=== PATIENT | male | born 1930 | race Caucasian/White ===

== ENCOUNTER 2017-11-17 18:24 | Inpatient (IN) ==
--- NOTE | 2017-11-17 18:33 | Emergency Department Note ---
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 Active/Remission status: without remission Qualified Code(s): C91.00 - Acute lymphoblastic leukemia not having achieved remission Disposition: Admitted As Inpatient Condition: Fair [facility]: [facility]Primary Care Provider[facility] - Time of Disposition: 19:30 Arrhythmia/Palpitations HPI - General Chief Complaint: UC Arrhythmia/Palpitations Stated Complaint: irregular heart beat Time Seen by Provider: 11/17/17 18:27 Source: patient, family Mode of arrival: private vehicle Limitations: no limitations Nursing Notes Reviewed: Yes Vital Signs Reviewed: Yes - History of Present Illness HPI Narrative: Patient relates he is undergoing treatment for lymphocytic leukemia. States he had a white count of 110,000 which was down to 79,000 today. He was to call in to his doctor and get his medications renewed and he had talked to them about having a elevated heart rate over the last 2-3 weeks as well as some puffiness around his ankles. He states his highest heart rate he is recorded today was 139. His oncologist told him to come to the emergency department for evaluation as this could in part be a side effect of his treatment. He denies that he has been having chest pain or shortness of breath. He states he only feels a feeling of palpitations "at times". He denies any persistent shortness of breath although reports that he sometimes has slight shortness of breath. He denies weakness, dizziness or diaphoresis but has some generalized fatigue and tiredness. He states he has attributed that to being 87 years old and his chemotherapy. He denies history of any atrial fibrillation states he has had a history of some individual irregular heartbeats in the past. He arrives with a copy of his blood work from [facility] was collected at 3: 03 PM today. This did demonstrate a white count of 79.5, hemoglobin of 10.9 and platelets of 74. He was with lymphocyte predominance of 89.8%. His chemistries were remarkable for a BUN of 28 and a creatinine of 1.7. Pt Subjective Complaint: rapid heart beat, irregular heart beat Onset (ago): week(s) Duration: intermittent Severity: mild Associated symptoms: Denies: chest pain, shortness of breath, syncope, near- syncope, nausea, vomiting, anxiety, diaphoresis, cough, paresthesias, muscle cramps - Related Data Home Medications Medication Instructions Recorded Confirmed Allopurinol [Zyloprim 100 MG] 100 mg PO 07/23/16 Aspirin [Lo-Dose Aspirin EC] 81 mg PO 07/23/16 Calcium Carbonate [Calcium] 500 mg PO 07/23/16 Losartan [Cozaar] 25 mg PO 07/23/16 amLODIPine [Norvasc] 5 mg PO 07/23/16 raNITIdine HCl [Zantac] 150 mg PO 07/23/16 Inbrurrica 420 PO 11/17/17 Previous Rx's Medication Instructions Recorded Acyclovir [Zovirax] 800 mg PO 5XD #50 tablet 07/23/16 PredniSONE [Deltasone] 20 mg PO DAILY #11 tablet 07/23/16 Allergies Allergy/AdvReac Type Severity Reaction Status Date / Time No Known Allergies Allergy Verified 07/23/16 10:48 All systems ED: reviewed and negative except as stated. Past Medical History - Past Medical History Attestation: Yes The following information was validated with the patient. Source: patient, old records reviewed, obtained from family, nursing notes reviewed Medical history: Reports: cancer (Leukemia), GERD, hypertension, other ("Leaky mitral valve") Psychiatric history: Reports: no psych history - Social History Smoking Status: Never smoker Smokeless Tobacco Status: No Alcohol use: Reports: none Drug use: Reports: none Physical Exam - General Limitations: no limitations General appearance: alert, in no apparent distress - Head Head exam: atraumatic, normocephalic, normal inspection - Eye Eye exam: Present: normal appearance, PERRL, EOMI. Absent: scleral icterus, conjunctival injection - ENT ENT exam: normal exam, normal oropharynx, mucous membranes moist - Neck Neck exam: Present: normal inspection, full ROM, trachea midline. Absent: tenderness, meningismus, lymphadenopathy - Chest Chest inspection: Present: normal inspection, symmetric chest wall rise - Respiratory Respiratory exam: Present: normal lung sounds bilaterally. Absent: respiratory distress, wheezes, prolonged expiratory phase - Cardiovascular Cardiovascular exam: Present: tachycardia, irregular rhythm. Absent: JVD - Abdominal Exam Abdominal exam: Present: soft, Non-Tender, normal bowel sounds. Absent: tenderness, distention, guarding, rebound, rigidity - Extremities Exam Extremities exam: Present: normal inspection, full ROM, normal capillary refill , pedal edema (1-2+). Absent: tenderness, calf tenderness - Expanded Lower Extremity Exam Neurovascular/Tendon exam: Present: normal capillary refill. Absent: motor deficit, sensory deficit, tendon deficit Gait: observed and normal - Back Exam Back exam: Present: normal inspection, full ROM. Absent: tenderness, CVA tenderness (R), CVA tenderness (L) - Neurological Exam Neurological exam: Present: alert, oriented X3 - Psychiatric Psychiatric exam: Present: normal affect, normal mood - Skin Skin exam: Present: warm, dry, intact, normal color. Absent: rash, diaphoresis , pallor Course Course Narrative: With return of imaging, EKG and lab work, care is discussed with the patient, family and Dr. Reyna. Dr. Reyna desired this patient continue on monitor, received a dose of Cardizem orally and be observed tonight with additional IV Cardizem available should his heart rate accelerated. Patient family are agreeable with this and verbal orders have been obtained for observation. Vital Signs Temperature 98 F 11/17/17 18:37 Pulse Rate 108 11/17/17 18:37 Respiratory Rate 18 11/17/17 18:37 Blood Pressure 161/89 11/17/17 18:37 O2 Sat by Pulse Oximetry 94 11/17/17 18:37 Temperature 98 F 11/17/17 18:37 Pulse Rate 108 11/17/17 18:37 Respiratory Rate 18 11/17/17 18:37 Blood Pressure 161/89 11/17/17 18:37 O2 Sat by Pulse Oximetry 95 11/17/17 18:45 Oxygen Delivery Oxygen Delivery Room Air Arrhythmia/Palpitations - Differential Diagnosis Differential Diagnosis: Likely: palpitations, sinus tachycardia, artial arrhythmia, metabolic/electrolyte disturbance - Lab Data Lab results reviewed: Yes I reviewed the patient's lab results. Lab Results 11/17/17 11/17/17 Range/Units 18:47 18:47 PT 12.6 H (9.4-12.1) Seconds INR 1.1 APTT 30.4 (26.0-36.0) Seconds Troponin I < 0.03 (< 0.04) ng/mL - Radiology Data Radiology results reviewed: Yes I reviewed the patient's radiology results. Single view chest x-rays performed. This demonstrates some patchy nodular alternates I suspect are secondary with his lymphoma more likely the edema. I do not see consolidative or pneumonic infiltrate. Patient does not have effusion or pneumothorax. The cardiac silhouette is mildly enlarged. This is on my interpretation. Impressions Chest X-Ray 11/17/17 18:35 IMPRESSION: Findings suggest congestive heart failure D/ / Isaías Pina MD / Isaías Pina MD Interpreting Provider: Isaías Pina MD - EKG Data EKG attestation: Yes I reviewed and interpreted this EKG. EKG results narrative: EKG demonstrates atrial fibrillation with rapid ventricular response, ventricular rate of 114, axis of 43 and a QT/QTC of 307/75. Patient is very slender and has high amplitude consistent also with some possible LVH. He has some slight ST depression in V4 and V5. This is on my interpretation. Rate: tachycardia Rhythm: A.Fib
[2017-11-17] MEDS ORDERED: *HR* Enoxaparin 80 MG/0.8 ML SYRINGE SQ STA (18:34)
[2017-11-17] MEDS ORDERED: Aspirin 325 MG TABLET PO ONE (18:34)
[2017-11-17 19:06] LABS: INR 1.1; Prothrombin Time 12.6 Seconds (9.4-12.1)
[2017-11-17 19:08] LABS: Activated Partial Thrombo Time 30.4 Seconds (26.0-36.0)
[2017-11-17 19:17] LABS: Troponin I < 0.03 ng/mL (< 0.04)
[2017-11-17] MEDS ORDERED: Diltiazem CD (24hr) 120 MG CAPSULE PO ONE ×2 (19:32→20:15)
[2017-11-17] MEDS ORDERED: Naloxone 0.4 MG/ML INJ IVP PRN (20:37)
[2017-11-17 20:55] LABS: Thyroid Stimulating Hormone < 0.010 mcIU/mL (0.340-5.600)
[2017-11-18] MEDS ORDERED: *HR* Enoxaparin 60 MG/0.6 ML SYRINGE SQ SCH (06:00)
[2017-11-18] MEDS ORDERED: *HR* Enoxaparin 80 MG/0.8 ML SYRINGE SQ SCH (06:30)
[2017-11-18] MEDS: Diltiazem CD (24hr) 120 MG CAPSULE PO SCH (07:53)
[2017-11-18 09:25] LABS: BUN/Creatinine Ratio 17 (6-26); Blood Urea Nitrogen 23 mg/dL (8-23); Carbon Dioxide 27 mEq/L (23-29); Chloride 106 mEq/L (98-107); Glucose 119 mg/dL (70-105); Osmolality,Calculated 293 (280-300); Potassium 3.8 mEq/L (3.5-5.1); Sodium 139 mEq/L (136-145); eGFR For Non-African Americans 50 (> 60)
[2017-11-18] MEDS ORDERED: Bumetanide 1 MG/4 ML VIAL IVP ONE (11:27)
--- NOTE | 2017-11-18 11:41 | Internal Med History&Physical ---
Date of Encounter: 11/18/17 Time of Encounter: 10:45 Assessment and Plan (1) Atrial fibrillation with rapid ventricular response Current visit: Yes Status: Acute Duration unknown. Rate has slowed with use of Cardizem. Continue Cardizem and add low-dose beta montrell. Start oral anticoagulation. (2) Hypertension Current visit: Yes Status: Chronic Discontinue losartan and amlodipine and start Cardizem and low-dose beta montrell. Qualifiers: Hypertension type: essential hypertension Qualified Code(s): I10 - Essential (primary) hypertension (3) Edema Current visit: Yes Status: Acute Likely due to heart failure, hyperthyroidism, and use of amlodipine. Discontinue amlodipine, give IV Bumex, and recheck labs in a.m. Qualifiers: Edema type: unspecified Qualified Code(s): R60.9 - Edema, unspecified (4) Hyperthyroidism Current visit: Yes Status: Acute Check T4 and T3 levels. Start low-dose beta montrell with Cardizem to control AF. (5) Diastolic heart failure Current visit: Yes Status: Chronic Give IV Bumex and start beta montrell. Recheck labs in a.m. Qualifiers: Heart failure chronicity: chronic Qualified Code(s): I50.32 - Chronic diastolic (congestive) heart failure (6) CLL (chronic lymphocytic leukemia) Current visit: Yes Status: Chronic Check CBC in a.m. (7) Gout Current visit: Yes Status: Chronic Check uric acid level in a.m. Qualifiers: Gout site: unspecified site Gout etiology: unspecified cause Chronicity: chronic Presence of tophus: without tophus Qualified Code(s): M1A.9XX0 - Chronic gout, unspecified, without tophus (tophi) Internal Medicine - H&P: HPI Chief complaint: AF with RVR, CHF Admitted From: Emergency Dept Plans for Post Hospital Care: Home History of present illness: Mr. Gillis is a 87 year old male who was sent from his oncologist office to emergency room after he presented with AF with RVR and evidence of heart failure. Patient reports he has had intermittent sensation of rapid heart rate for approximately 3 weeks. The episodes last only a few seconds per his report. He has had occasional dyspnea on exertion but denies chest pain. He was found to have AF with RVR in emergency room. He was given IV Cardizem and admitted to [facility] floor for ongoing care needs. Cardiovascular history is significant for hypertension but he denies [place] heart failure DVT or pulmonary embolus. He has had edema of his legs for several months. Echocardiogram 01/23/2016 showed flail posterior mitral valve leaflet with severe mitral regurgitation. There was mild tricuspid regurgitation and mild pulmonic regurgitation seen. There was pulmonary hypertension with estimated RVSP of 41 mmHg. There was reported severely dilated left atrium without measurement recorded. E/A ratio was 1.2. It was recommended he go to [facility] for mitral valve repair but he has declined. Past Med Surg Social Fam HX - Past Medical History Medical history: cancer, GERD, hypertension, other Additional medical history: LEUKEMIA. "LEALY HEART VALVE" Psychiatric history: no psych history - Past Surgical History Surgical History: cholecystectomy Additional surgical history: Surgery on left arm with hardware. - Social History Smoking Status: Never smoker Smokeless Tobacco Status: No Alcohol use: none Drug use: none - Family History Father Living Status: Age at : 81 Hx Family Cancer: Yes (Hodgkins) Internal Medicine - H&P: Meds Allopurinol [Zyloprim 100 MG] 100 mg PO DAILY 07/23/16 [History] Aspirin [Lo-Dose Aspirin EC] 81 mg PO DAILY 07/23/16 [History] Calcium Carbonate [Calcium] 500 mg PO BID 07/23/16 [History] Losartan [Cozaar] 50 mg PO BID 07/23/16 [History] amLODIPine [Norvasc] 10 mg PO HS 07/23/16 [History] Inbrurrica 420 mg PO DAILY 11/17/17 [History] Omeprazole 20 mg PO DAILY 11/18/17 [History] 3 Allergy/AdvReac Type Severity Reaction Status Date / Time No Known Allergies Allergy Verified 07/23/16 10:48 All Systems PM: A 10-system review of systems was performed and is negative for pertinent findings except as documented above in the HPI. Review of systems: Gen.: He states his weight declined 20 pounds in the past year but he has regained some weight without quantitating the amount regained. Cardiovascular: As per history of present illness Respiratory: He is a lifelong nonsmoker and has no known chronic lung disease GI: He has had cholecystectomy. He denies disorders of his liver or exocrine pancreas :. He has BPH and was told he has chronic kidney disease but does not know details. He denies other kidney bladder prostate disorders. Neurologic: He denies large distribution strokes or seizures. Endocrine: He has history of goiter with hyperthyroidism but does not know details and is not receiving treatment. He denies diabetes or hyperlipidemia Hematology/oncology: He has had anemia in the past. He was diagnosed with CLL approximately 2005 and is following with Dr. Andrews in [place]. He denies other internal malignancies. Psychiatric: He denies anxiety depression or other mental health issues [place] skeletal: He had remote left arm fracture. He has DJD and gout. He denies other bone joint or muscle disorders. - Constitutional Vitals: Temp Pulse Resp BP Pulse Ox 97.6 F 94 15 146/77 94 11/18/17 11:19 11/18/17 11:19 11/18/17 11:19 11/18/17 11:19 11/18/17 11:19 Exam: Gen.: He is a well-developed well-nourished male resting in bed who appears in no acute distress at present time HEENT: Head is atraumatic and normocephalic. Eyes: EOMI. There is no scleral icterus. Mouth: Mucosa is moist. Neck: Supple and nontender. There is no thyromegaly or adenopathy noted. Heart: Irregularly irregular with rate approximately 100/m. Lungs: No wheezes or crackles are heard. Abdomen: Soft and nontender. No masses or guarding are noted. Extremities: He has 1+ edema of the dorsum of the feet and lower legs bilaterally. Dorsalis pedis and posttibial pulses are not palpable. His feet are warm to touch. He has significant DJD changes of his hands. Neurologic: Mental status: He is talkative and a fair to good historian. Cranial nerves: Smile is symmetric. Forehead wrinkles bilaterally. Tongue protrudes midline. EOMI. Motor: There is no pronator drift. Cerebellar: Finger to nose is intact bilaterally. Skin: Warm and dry Internal Med - H&P Results - Labs CBC & Chem 7: 11/18/17 08:38 Labs: BMP 11/18/17 08:38 Sodium 139 Potassium 3.8 Chloride 106 Carbon Dioxide 27 BUN 23 Creatinine 1.35 H Glucose 119 H Calcium 9.0 Cardiac Enzymes 11/18/17 Range/Units 04:44 Troponin I < 0.03 (< 0.04) ng/mL
[2017-11-18] MEDS ORDERED: *HR* Rivaroxaban 15 MG TABLET PO SCH (17:00)
[2017-11-18 17:14] LABS: Triiodothyronine (T3) Free 2.58 pg/mL (2.50-3.90)
--- NOTE | 2017-11-18 17:28 | Electrocardiograph Report ---
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
[2017-11-19 06:32] VITALS: BP 155/85
[2017-11-19 07:02] LABS: Hematocrit 32.8 % (37.5-50.1); Hemoglobin 10.5 g/dL (12.9-16.9); Mean Corpuscular Hemoglobin 30.7 pg (28.0-33.3); Mean Corpuscular Volume 95.9 fL (83.0-100.0); Mean Platelet Volume 14.5 fL (9.4-12.4); Red Blood Count 3.42 M/mcL (4.19-5.50); Red Cell Distribution Width 14.3 % (11.5-14.5)
[2017-11-19 07:23] LABS: Albumin 3.6 g/dL (3.5-5.7); Albumin/Globulin Ratio 1.6 (1.1-2.2); Bilirubin,Total 1.1 mg/dL (0.3-1.0); Calcium 8.7 mg/dL (8.6-10.3); Globulin 2.3 g/dL (2.4-3.5); Potassium 3.6 mEq/L (3.5-5.1); Total Protein 5.9 g/dL (6.4-8.9)
[2017-11-19 07:45] LABS: Platelet Count 63 K/mcL (140-400)
[2017-11-19 08:07] LABS: Lymphocytes # 51.2 K/mcL (0.6-4.6); Monocytes # 1.1 K/mcL (0.0-1.3); Neutrophils # 2.2 K/mcL (1.6-8.9); Smudge Cells Present (Not Present)
[2017-11-19 08:08] LABS: Platelet Estimate Decreased (Normal)
[2017-11-19] MEDS: Diltiazem CD (24hr) 120 MG CAPSULE PO SCH (08:48)
--- NOTE | 2017-11-19 10:03 | Discharge Summary ---
Date of Encounter: 11/19/17 Time of Encounter: 09:50 - Discharge Diagnosis (1) Atrial fibrillation with rapid ventricular response Priority: Primary Status: Acute (2) Diastolic heart failure Priority: Secondary Status: Chronic Qualifiers: Heart failure chronicity: chronic Qualified Code(s): I50.32 - Chronic diastolic (congestive) heart failure (3) Hypertension Priority: Secondary Status: Chronic Qualifiers: Hypertension type: essential hypertension Qualified Code(s): I10 - Essential (primary) hypertension (4) Edema Priority: Secondary Status: Acute Qualifiers: Edema type: unspecified Qualified Code(s): R60.9 - Edema, unspecified (5) Hyperthyroidism Priority: Secondary Status: Acute (6) CLL (chronic lymphocytic leukemia) Priority: Secondary Status: Chronic (7) Gout Priority: Secondary Status: Chronic Qualifiers: Gout site: unspecified site Gout etiology: unspecified cause Chronicity: chronic Presence of tophus: without tophus Qualified Code(s): M1A.9XX0 - Chronic gout, unspecified, without tophus (tophi) (8) Anemia Priority: Secondary Status: Acute Qualifiers: Anemia type: unspecified type Qualified Code(s): D64.9 - Anemia, unspecified (9) Thrombocytopenia Priority: Secondary Status: Acute Hospital course: Mr. Gillis is a 87 year old male who was sent from his oncologist office to emergency room after he presented with AF with RVR and evidence of heart failure. Patient reports he has had intermittent sensation of rapid heart rate for approximately 3 weeks. The episodes last only a few seconds per his report. He has had occasional dyspnea on exertion but denies chest pain. He was found to have AF with RVR in emergency room. He was given IV Cardizem and admitted to [facility] floor for ongoing care needs. Initial orders were written by the emergency room physician. I saw him morning of November 18 and performed a history and physical. He was given a dose of IV Lasix to lessen heart failure symptoms. Metoprolol was started to control ventricular response rate. Cardizem was continued from emergency room orders. He was started on Xarelto for CVA prophylaxis. He had good clinical response with heart rate decreased to less than 100 and lessening of dyspnea. TSH was suppressed to < 0.010. Free T4 returned elevated at 2.18. Free T3 was normal at 2.58. 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 A radioactive iodine uptake nuclear medicine study can be ordered as an outpatient to further delineate the nature of the hyperthyroidism. Lab work on November 19 showed WBC 50 4.5K consistent with known CLL. Hemoglobin was 10.5 and platelet count 63,000. His PCP and/or melter supervisor oxygen furnace can monitor these. Creatinine was slightly higher at 1.49 on day of discharge with estimated GFR 45 consistent with chronic kidney disease stage III. BN peptide was elevated at 390. His PCP can monitor this. Hemoglobin was 10.5 and platelet count 63K on day of discharge. His melter supervisor oxygen furnace/oncologist can further evaluate as needed. On November 19 he felt improved and wished to be discharged home. He will follow with his PCP and/or oncologist within 1 week. His PCP can refer to cardiology as needed. - Time Spent with Patient Total time spent providing and/or coordinating discharge services: - Discharge Medications Prescriptions: Bumetanide 0.5 mg PO DAILY #30 tablet Diltiazem CD (24hr) [Cardizem CD] 120 mg PO DAILY #30 cap.er.24h Metoprolol XL (24 HR) Succ [Toprol XL] 25 mg PO DAILY #30 tab.er.24h Rivaroxaban [Xarelto] 15 mg PO 1700 #30 tablet Home Medications: Allopurinol [Zyloprim 100 MG] 100 mg PO DAILY 07/23/16 [History] Calcium Carbonate [Calcium] 500 mg PO BID 07/23/16 [History] Inbrurrica 420 mg PO DAILY 11/17/17 [History] Omeprazole 20 mg PO DAILY 11/18/17 [History] Bumetanide 0.5 mg PO DAILY #30 tablet 11/19/17 [Rx] Diltiazem CD (24hr) [Cardizem CD] 120 mg PO DAILY #30 cap.er.24h 11/19/17 [Rx] Metoprolol XL (24 HR) Succ [Toprol XL] 25 mg PO DAILY #30 tab.er.24h 11/19/17 [ Rx] Rivaroxaban [Xarelto] 15 mg PO 1700 #30 tablet 11/19/17 [Rx] Allergies/Adverse Reactions: 3 Allergy/AdvReac Type Severity Reaction Status Date / Time No Known Allergies Allergy Verified 07/23/16 10:48 Date of admission: 11/18/17 11:55 [facility] care [facility] - Constitutional Vitals: Temp Pulse Resp BP Pulse Ox 98.2 F 94 18 155/85 92 11/19/17 06:24 11/19/17 06:24 11/19/17 06:24 11/19/17 06:24 11/19/17 06:24 - Patient Status Disposition: Home, Self-Care Condition: Fair - Discharge Instructions Follow Up With: [facility] [Primary Care Provider[facility] - 1 week Forms: ED Satisfaction Letter - Diet and Activity Activity: resume usual activities as tolerated Diet: advance to your usual diet
== END 2017-11-19 10:55 | disposition home or self-care (01) | DRG 309 ==
LOC: INPPIK 18:24 → EMEROOPIK 18:24 → INPPIK 20:25
PROVIDERS: ADMIT Internal Medicine; ATTEND Internal Medicine

== ENCOUNTER 2018-01-29 12:08 | Inpatient (IN) ==
[2018-01-29] MEDS ORDERED: Furosemide 40 MG/4 ML VIAL IVP ONE (12:24)
[2018-01-29] MEDS ORDERED: Ipratropium/Albuterol Neb 3 ML IH ONE (12:24)
[2018-01-29] MEDS ORDERED: Albuterol 2.5 MG/3 ML NEBULIZER IH ONE (12:24)
[2018-01-29] MEDS ORDERED: methylPREDNISolone 125 MG/2 ML VIAL IVP ONE (12:32)
--- NOTE | 2018-01-29 12:32 | Emergency Department Note ---
Disposition Clinical Impression: Congestive heart failure Qualifiers: Heart failure type: combined systolic and diastolic Heart failure chronicity: acute Qualified Code(s): I50.41 - Acute combined systolic (congestive) and diastolic (congestive) heart failure Pneumonia Qualifiers: Pneumonia type: due to unspecified organism Laterality: bilateral Lung location: unspecified part of lung Qualified Code(s): J18.9 - Pneumonia, unspecified organism Disposition: Admitted As Inpatient Condition: Fair Time of Disposition: 14:10 (Accepted by Dr Isaac at about 14:10) SOB HPI - General Chief Complaint: ED Shortness of Breath/Dyspnea Stated Complaint: SAMANTHA Time Seen by Provider: 01/29/18 12:14 Source: patient Limitations: no limitations Nursing Notes Reviewed: Yes Vital Signs Reviewed: Yes - History of Present Illness Patient is a pleasant 87-year-old male with past medical history significant for HTN, Cardiography, A fib and GERD who does NOT take home NC who is presenting to [facility] Emergency Room with a chief complaint off SOB and hypoxia. His son brought him due to his progressive SOB when he went to the back yard and thought its due to his a fib. On admission, pt's HR in 80s no rvr and was found HYPOXIC, placed on 3 L NC to improve pulse ox to 90s. Patient denies any fever, chills or night sweats. Pt also denies any eye pain or visual disturbances. There is no sore throat, nasal drainages or facial congestion. There is no chest pain, palpitations or racing heart. There is no abdominal pain, nausea, vomiting or diarrhea. There is no urgency, frequency or dysuria. There is no muskulo-skeletal pain, arthralgia or back pain. Patient also denies any rash, edema or pruritus. There is no neurological manifestations, no headache, no vertigo or weakness. The patient also denies any anxiety, depression, hallucinations and has no homicidal or suicidal ideations. There is no polyuria, polydipsia or recent weight change. There is no easy bruising or bleeding. Review of other systems is otherwise negative except above. Pt Subjective Complaint: shortness of breath Onset (ago): Just QUILL [employer]IPPER Context: recent illness Severity: mild - Related Data Home Medications Medication Instructions Recorded Confirmed Allopurinol [Zyloprim 100 MG] 100 mg PO DAILY 07/23/16 01/29/18 Calcium Carbonate [Calcium] 500 mg PO BID 07/23/16 01/29/18 Omeprazole 20 mg PO DAILY 11/18/17 01/29/18 Furosemide [Lasix] 10 mg PO DAILY 01/29/18 01/29/18 Previous Rx's Medication Instructions Recorded Diltiazem CD (24hr) [Cardizem CD] 120 mg PO DAILY #30 cap.er.24h 11/19/17 Metoprolol XL (24 HR) Succ [Toprol 25 mg PO DAILY #30 tab.er.24h 11/19/17 XL] Allergies Allergy/AdvReac Type Severity Reaction Status Date / Time No Known Allergies Allergy Verified 01/29/18 12:09 All systems ED: reviewed and negative except as stated. Review of Systems: As Per HPI Constitutional: Reports: weakness. Denies: fever, chills, weight change Eyes: Denies: eye pain, eye discharge, vision change ENT ED: Denies: ear pain, throat pain, dental pain, hearing loss, epistaxis, congestion, dysphagia Cardiovascular: Reports: dyspnea on exertion. Denies: chest pain, palpitations, edema, syncope Respiratory: Reports: dyspnea. Denies: cough, wheezes, hemoptysis, stridor Gastrointestinal: Denies: abdominal pain, nausea, vomiting, diarrhea, constipation, hematemesis, melena, hematochezia Genitourinary: Denies: urgency, dysuria, frequency, hematuria Musculoskeletal: Denies: back pain, neck pain, arthralgia, myalgia Integumentary: Denies: rash, abrasion, lesions Neurological: Denies: headache, weakness, numbness, paresthesias, confusion, abnormal gait, vertigo Psychiatric: Denies: anxiety, depression, suicidal thoughts, homicidal thoughts, auditory hallucinations, visual hallucinations Endocrine: Denies: fatigue Hematological/Lymphatic: Denies: easy bleeding, easy bruising Allergic/Immunologic: Denies: facial swelling, urticaria Past Medical History - Past Medical History Medical history: Reports: arthritis, cardiomyopathy, GERD, hypertension, other Surgical history: Reports: cholecystectomy Psychiatric history: Reports: no psych history - Social History Smoking Status: Never smoker Smokeless Tobacco Status: No Alcohol use: Reports: none Drug use: Reports: none Physical Exam - General Limitations: no limitations General appearance: alert, in distress - Head Head exam: atraumatic, normocephalic, normal inspection - Eye Eye exam: Present: normal appearance, PERRL, EOMI - Expanded Eye Exam Pupils: Left: reactive - ENT ENT exam: normal exam, normal oropharynx, mucous membranes moist - Expanded ENT Exam External ear exam: Present: normal external inspection Mouth exam: Present: normal external inspection Teeth exam: Present: normal inspection Throat exam: Present: normal inspection - Neck Neck exam: Present: normal inspection, full ROM, trachea midline - Chest Chest inspection: Present: normal inspection, symmetric chest wall rise - Respiratory Respiratory exam: Present: normal lung sounds bilaterally - Cardiovascular Cardiovascular exam: Present: regular rate, normal rhythm, normal heart sounds, systolic murmur, diastolic murmur, +S4 - Abdominal Exam Abdominal exam: Present: soft, Non-Tender. Absent: tenderness, distention, guarding, rebound, rigidity - Extremities Exam Extremities exam: Present: normal inspection, full ROM, joint swelling. Absent: tenderness, pedal edema - Expanded Upper Extremity Exam Shoulder exam: Present: normal inspection, full ROM Arm exam: Present: normal inspection, full ROM Elbow exam: Present: normal inspection, full ROM Forearm/Wrist exam: Present: normal inspection, full ROM Hand exam: Present: normal inspection, full ROM Vascular exam: Normal: capillary refill, radial pulse - Expanded Lower Extremity Exam Hip/Pelvis exam: Present: normal inspection, full ROM Upper leg exam: Present: normal inspection, full ROM Knee exam: Present: normal inspection, full ROM Lower leg exam: Present: normal inspection, full ROM, swelling Ankle exam: Present: normal inspection, full ROM, swelling Foot/toe exam: Present: normal inspection, full ROM, swelling Neurovascular/Tendon exam: Absent: motor deficit, sensory deficit, tendon deficit - Back Exam Back exam: Present: normal inspection, full ROM. Absent: tenderness - Neurological Exam Neurological exam: Present: alert, oriented X3 - Expanded Neurological Exam Patient oriented to: Present: person, place, time Coma Scale Eye Opening: Spontaneous Coma Scale Motor Response: Obeys Commands Coma Scale Verbal Response: Oriented Coma Scale Total: 15 - Psychiatric Psychiatric exam: Present: normal affect, normal mood - Skin Skin exam: Present: warm, dry, intact, normal color Course Vital Signs Temperature 98.3 F 01/29/18 12:10 Pulse Rate 85 01/29/18 12:10 Respiratory Rate 20 01/29/18 12:10 Blood Pressure 160/102 01/29/18 12:10 O2 Sat by Pulse Oximetry 92 01/29/18 12:10 Temperature 97.5 F L 01/29/18 15:47 Pulse Rate 92 01/29/18 15:47 Respiratory Rate 23 01/29/18 15:47 Blood Pressure 148/98 01/29/18 15:47 O2 Sat by Pulse Oximetry 95 01/29/18 15:47 Oxygen Delivery Oxygen Delivery Nasal Cannula Shortness of Breath/Dyspnea - Differential Diagnosis Likely: congestive heart failure, pneumonia, asthma with exacerbation, pulmonary embolism, pneumothorax - Medical Records Medical records reviewed: Yes I reviewed the patient's medical records. - Lab Data Lab results reviewed: Yes I reviewed the patient's lab results. Result diagrams: 01/29/18 12:51 01/29/18 12:51 Lab Results 01/29/18 01/29/18 01/29/18 Range/Units 12:51 12:51 12:51 WBC 19.6 H (4.3-11.1) K/mcL RBC 3.64 L (4.19-5.50) M/mcL Hgb 10.9 L (12.9-16.9) g/dL Hct 33.3 L (37.5-50.1) % MCV 91.5 (83.0-100.0) fL MCH 29.9 (28.0-33.3) pg MCHC 32.7 (31.6-35.5) g/dL RDW 17.0 H (11.5-14.5) % Plt Count 121 L (140-400) K/mcL MPV 11.9 (9.4-12.4) fL Seg Neutrophils % 34.0 % Lymphocytes % 64.0 % Monocytes % 2.0 % Neutrophils # 6.7 (1.6-8.9) K/mcL Lymphocytes # 12.5 H (0.6-4.6) K/mcL Monocytes # 0.4 (0.0-1.3) K/mcL Smudge Cells Present A (Not Present) Platelet Estimate Decreased L (Normal) Anisocytosis 1+ A (Not Present) PT (9.4-12.1) Seconds INR APTT (26.0-36.0) Seconds D-Dimer 861 H (0-500) ng/mLFEU Sodium 135 L (136-145) mEq/L Potassium 4.3 (3.5-5.1) mEq/L Chloride 103 (98-107) mEq/L Carbon Dioxide 22 L (23-29) mEq/L BUN 54 H (8-23) mg/dL Creatinine 2.00 H (0.70-1.30) mg/dL Est GFR ( Amer) 39 L (> 60) Est GFR (Non-Af Amer) 32 L (> 60) BUN/Creatinine Ratio 27 H (6-26) Glucose 126 H (70-105) mg/dL Calculated Osmolality 296 (280-300) Calcium 9.1 (8.6-10.3) mg/dL Total Bilirubin 1.9 H (0.3-1.0) mg/dL Direct Bilirubin 0.7 H (0.0-0.2) mg/dL Indirect Bilirubin 1.2 (0.0-1.2) mg/dL AST 65 H (13-39) Units/L ALT 74 H (7-52) Units/L Alkaline Phosphatase 87 (34-104) Units/L Troponin I 0.04 H* (< 0.04) ng/mL B-Natriuretic Peptide (Less than 100) pg/mL Serum Total Protein 6.1 L (6.4-8.9) g/dL Albumin 3.8 (3.5-5.7) g/dL Globulin 2.3 L (2.4-3.5) g/dL Albumin/Globulin Ratio 1.7 (1.1-2.2) Urine Color (Yellow) Urine Clarity (Clear) Urine pH (5.0-8.0) pH Units Ur Specific Franklin (1.010-1.025) Urine Protein (Neg-Trace) mg/dL Urine Glucose (UA) (Normal) mg/dL Urine Ketones (Negative) mg/dL Urine Blood (Negative) Urine Nitrite (Negative) Urine Bilirubin (Negative) Urine Urobilinogen (Normal) mg/dL Ur Leukocyte Esterase (Negative) Ur Culture Indicated? (NO) 01/29/18 01/29/18 01/29/18 Range/Units 12:51 12:51 13:47 WBC (4.3-11.1) K/mcL RBC (4.19-5.50) M/mcL Hgb (12.9-16.9) g/dL Hct (37.5-50.1) % MCV (83.0-100.0) fL MCH (28.0-33.3) pg MCHC (31.6-35.5) g/dL RDW (11.5-14.5) % Plt Count (140-400) K/mcL MPV (9.4-12.4) fL Seg Neutrophils % % Lymphocytes % % Monocytes % % Neutrophils # (1.6-8.9) K/mcL Lymphocytes # (0.6-4.6) K/mcL Monocytes # (0.0-1.3) K/mcL Smudge Cells (Not Present) Platelet Estimate (Normal) Anisocytosis (Not Present) PT 23.5 H (9.4-12.1) Seconds INR 2.1 APTT 32.9 (26.0-36.0) Seconds D-Dimer (0-500) ng/mLFEU Sodium (136-145) mEq/L Potassium (3.5-5.1) mEq/L Chloride (98-107) mEq/L Carbon Dioxide (23-29) mEq/L BUN (8-23) mg/dL Creatinine (0.70-1.30) mg/dL Est GFR ( Amer) (> 60) Est GFR (Non-Af Amer) (> 60) BUN/Creatinine Ratio (6-26) Glucose (70-105) mg/dL Calculated Osmolality (280-300) Calcium (8.6-10.3) mg/dL Total Bilirubin (0.3-1.0) mg/dL Direct Bilirubin (0.0-0.2) mg/dL Indirect Bilirubin (0.0-1.2) mg/dL AST (13-39) Units/L ALT (7-52) Units/L Alkaline Phosphatase (34-104) Units/L Troponin I (< 0.04) ng/mL B-Natriuretic Peptide 2587 H (Less than 100) pg/mL Serum Total Protein (6.4-8.9) g/dL Albumin (3.5-5.7) g/dL Globulin (2.4-3.5) g/dL Albumin/Globulin Ratio (1.1-2.2) Urine Color Yellow (Yellow) Urine Clarity Clear (Clear) Urine pH 5.0 (5.0-8.0) pH Units Ur Specific Franklin 1.015 (1.010-1.025) Urine Protein Negative (Neg-Trace) mg/dL Urine Glucose (UA) Normal (Normal) mg/dL Urine Ketones Negative (Negative) mg/dL Urine Blood Negative (Negative) Urine Nitrite Negative (Negative) Urine Bilirubin Negative (Negative) Urine Urobilinogen Normal (Normal) mg/dL Ur Leukocyte Esterase Negative (Negative) Ur Culture Indicated? NO (NO) - Radiology Data Radiology results reviewed: Yes I reviewed the patient's radiology results. - EKG Data EKG attestation: Yes I reviewed and interpreted this EKG.
[2018-01-29 12:59] LABS: Hematocrit 33.3 % (37.5-50.1); Hemoglobin 10.9 g/dL (12.9-16.9); Mean Corpuscular HGB Conc 32.7 g/dL (31.6-35.5); Mean Corpuscular Hemoglobin 29.9 pg (28.0-33.3); Mean Corpuscular Volume 91.5 fL (83.0-100.0); Mean Platelet Volume 11.9 fL (9.4-12.4); Monocytes # 0.4 K/mcL (0.0-1.3); Platelet Count 121 K/mcL (140-400); Red Blood Count 3.64 M/mcL (4.19-5.50)
[2018-01-29 13:07] LABS: INR 2.1; Prothrombin Time 23.5 Seconds (9.4-12.1)
[2018-01-29 13:10] LABS: Activated Partial Thrombo Time 32.9 Seconds (26.0-36.0)
[2018-01-29 13:15] LABS: Albumin 3.8 g/dL (3.5-5.7); Albumin/Globulin Ratio 1.7 (1.1-2.2); Bilirubin,Direct 0.7 mg/dL (0.0-0.2); Bilirubin,Indirect 1.2 mg/dL (0.0-1.2); Bilirubin,Total 1.9 mg/dL (0.3-1.0); Calcium 9.1 mg/dL (8.6-10.3); Globulin 2.3 g/dL (2.4-3.5); Lymphocytes # 12.5 K/mcL (0.6-4.6); Neutrophils # 6.7 K/mcL (1.6-8.9); Potassium 4.3 mEq/L (3.5-5.1); Total Protein 6.1 g/dL (6.4-8.9)
[2018-01-29 13:16] LABS: Anisocytosis 1+ (Not Present); Platelet Estimate Decreased (Normal); Smudge Cells Present (Not Present)
[2018-01-29 13:47] LABS: Troponin I 0.04 ng/mL (< 0.04)
[2018-01-29] MEDS ORDERED: Isovue-370 500 ML INFUS..BTL IV ONE (13:47)
[2018-01-29] MEDS ORDERED: cefTRIAXone 2,000 MG in Water for inj. (sterile) 20 ML 20 ML IVP ONE (14:07)
[2018-01-29 14:26] LABS: Bilirubin,Urine Negative (Negative); Blood,Urine Negative (Negative); Clarity,Urine Clear (Clear); Color,Urine Yellow (Yellow); Glucose,Urine (UA) Normal (Normal); Ketones,Urine Negative (Negative); Leukocyte Esterase,Urine Negative (Negative); Nitrite,Urine Negative (Negative); Protein,Urine Negative (Neg-Trace); Specific Gravity,Urine 1.015 (1.010-1.025); Urobilinogen,Urine Normal (Normal)
[2018-01-29] MEDS ORDERED: Naloxone 0.4 MG/ML INJ IVP PRN ×3 (14:37→14:40)
[2018-01-29] MEDS: Metoprolol XL (24 HR) Succ 25 MG TAB.ER.24H PO SCH (17:26)
[2018-01-29] MEDS: Furosemide 20 MG/2 ML VIAL IVP SCH (17:26)
[2018-01-29] MEDS: Isosorbide MONOnitrate (24 HR) 30 MG TAB.ER.24H PO SCH (17:26)
--- NOTE | 2018-01-29 19:36 | Internal Med History&Physical ---
Date of Encounter: 01/29/18 Time of Encounter: 15:50 Assessment and Plan (1) Diastolic heart failure Current visit: No Status: Chronic Superimposed flail posterior mitral valve leaflet. He has previously declined referral to [facility] for repair. I spoke to him about the seriousness of the situation and his poor prognosis without surgical intervention. Continue Toprol, Cardizem, and start IV Lasix with Imdur. Qualifiers: Heart failure chronicity: chronic Qualified Code(s): I50.32 - Chronic diastolic (congestive) heart failure (2) Atrial fibrillation with rapid ventricular response Current visit: No Status: Acute Continue Eliquis, metoprolol, and Cardizem (3) CLL (chronic lymphocytic leukemia) Current visit: No Status: Chronic As per Dr. Andrews (4) Hypertension Current visit: No Status: Chronic Continue metoprolol and Cardizem. Qualifiers: Hypertension type: essential hypertension Qualified Code(s): I10 - Essential (primary) hypertension (5) Hyperthyroidism Current visit: No Status: Acute [facility]. Continue systematic treatment with Toprol. (6) Gout Current visit: No Status: Chronic Continue allopurinol Qualifiers: Gout site: unspecified site Gout etiology: unspecified cause Chronicity: chronic Presence of tophus: without tophus Qualified Code(s): M1A.9XX0 - Chronic gout, unspecified, without tophus (tophi) (7) Anemia Current visit: No Status: Acute Order anemia testing in a.m. Qualifiers: Anemia type: unspecified type Qualified Code(s): D64.9 - Anemia, unspecified Internal Medicine - H&P: HPI Chief complaint: Dyspnea Admitted From: Emergency Dept Plans for Post Hospital Care: Home History of present illness: Mr. Gillis is a 87 year old male who came to emergency room stating he had increased dyspnea over the past month with worsening the past 1-2 days. He reports a cough productive of minimal whitish sputum. He denies chest pain. He has had orthopnea. He was evaluated in emergency room and felt to have exacerbation of heart failure and possible pneumonia. He was admitted to [facility] floor for ongoing care needs. Cardiovascular history is significant for hypertension but he denies ND DVT or pulmonary embolus. He had elevated BNP peptide during his [facility] hospitalization approximately 2 months ago. He reports going to follow-up at the [place] [facility] following [facility] discharge and an echocardiogram was done. He reports he was sent from the echo lab to the [place] emergency room because of an abnormality was seen on the echo but the staff in the [place] emergency room did not know why he had been sent and no intervention was done. He states he has been referred to Dr. Vasquez De La Vega at [facility] who made no new suggestions or interventions. He has had edema of his legs for several months. Echocardiogram at [facility] 01/23/2016 showed flail posterior mitral valve leaflet with severe mitral regurgitation. There was mild tricuspid regurgitation and mild pulmonic regurgitation seen. There was pulmonary hypertension with estimated RVSP of 41 mmHg. There was reported severely dilated left atrium without measurement recorded. E/A ratio was 1.2. It was recommended he go to [facility] for mitral valve repair but he has declined. He was diagnosed with atrial fibrillation on presentation to [facility] last admission. He is now on Eliquis, metoprolol, and Cardizem. Past Med Surg Social Fam HX - Past Medical History Medical history: arthritis, cardiomyopathy, GERD, hypertension, other Additional medical history: MITRAL VALVE REGURGITATION, SYCUAN,GOUT Psychiatric history: no psych history - Past Surgical History Surgical History: cholecystectomy Additional surgical history: Surgery on left arm with hardware. - Social History Smoking Status: Never smoker Smokeless Tobacco Status: No Alcohol use: none Drug use: none - Family History Father Living Status: Hx Family Cancer: Yes (Hodgkins) Internal Medicine - H&P: Meds Allopurinol [Zyloprim 100 MG] 100 mg PO DAILY 07/23/16 [History] Calcium Carbonate [Calcium] 500 mg PO BID 07/23/16 [History] Omeprazole 20 mg PO DAILY 11/18/17 [History] Diltiazem CD (24hr) [Cardizem CD] 120 mg PO DAILY #30 cap.er.24h 11/19/17 [Rx] Metoprolol XL (24 HR) Succ [Toprol XL] 25 mg PO DAILY #30 tab.er.24h 11/19/17 [Rx] Furosemide [Lasix] 10 mg PO DAILY 01/29/18 [History] Allergy/AdvReac Type Severity Reaction Status Date / Time No Known Allergies Allergy Verified 01/29/18 12:09 All Systems PM: A 10-system review of systems was performed and is negative for pertinent findi ngs except as documented above in the HPI. Review of systems: Review of systems from his November 2017 [facility] hospitalization were reviewed and revised as below. Gen.: His weight has remained stable at approximate 63 kg since the November 2017 [facility] hospitalization. Cardiovascular: As per history of present illness Respiratory: He is a lifelong nonsmoker and has no known chronic lung disease GI: He has had cholecystectomy. He denies disorders of his liver or exocrine pancreas :. He has BPH and chronic kidney disease. He denies other kidney bladder prostate disorders. Neurologic: He denies large distribution strokes or seizures. Endocrine: He has history of goiter with hyperthyroidism but does not know details and is not receiving treatment. He denies diabetes or hyperlipidemia Hematology/oncology: He has had anemia in the past. He was diagnosed with CLL approximately 2005 and is following with Dr. Andrews in [place]. He denies other internal malignancies. Psychiatric: He denies anxiety depression or other mental health issues [place] skeletal: He had remote left arm fracture. He has DJD and gout. He denies other bone joint or muscle disorders. - Constitutional Vitals: Temp Pulse Resp BP Pulse Ox 97.5 F L 92 23 148/98 95 01/29/18 15:47 01/29/18 15:47 01/29/18 15:47 01/29/18 15:47 01/29/18 15:47 Exam: Gen.: He is a well-developed well-nourished male sitting on the side of bed who appears in no acute distress at present time HEENT: Head is atraumatic and normocephalic. Eyes: EOMI. There is no scleral icterus. Mouth: Mucosa is moist. Neck: Supple and nontender. There is no thyromegaly or adenopathy noted. Heart: Irregularly irregular with a 3/6 systolic murmur heard at the apex and radiating to the axilla. Lungs: Has diminished breath sounds diffusely and especially in the bases bilaterally. Back: Straight with flank tenderness. There is trace presacral edema. Abdomen: Soft and nontender. No masses or guarding are noted. Extremities: His feet are cool to touch. He has 1-2+ edema of the dorsum of the feet and lower legs bilaterally. Dorsalis pedis and posterior tibial pulses are not palpable. Neurologic: Mental status: He is talkative and a good historian. Cranial nerves: Smile is symmetric. Forehead wrinkles bilaterally. Tongue protrudes midline. EOMI. Motor: There is no pronator drift. Cerebellar: Finger to nose is intact bilaterally. Skin: Warm and dry Internal Med - H&P Results - Labs CBC & Chem 7: 01/29/18 12:51 01/29/18 12:51 Labs: Short CBC 01/29/18 Range/Units 12:51 WBC 19.6 H (4.3-11.1) K/mcL Hgb 10.9 L (12.9-16.9) g/dL Hct 33.3 L (37.5-50.1) % Plt Count 121 L (140-400) K/mcL Neutrophils # 6.7 (1.6-8.9) K/mcL BMP 01/29/18 12:51 Sodium 135 L Potassium 4.3 Chloride 103 Carbon Dioxide 22 L BUN 54 H Creatinine 2.00 H Glucose 126 H Calcium 9.1 Cardiac Enzymes 01/29/18 01/29/18 Range/Units 12:51 15:00 Troponin I 0.04 H* 0.05 H* (< 0.04) ng/mL Liver Function 01/29/18 Range/Units 12:51 Total Bilirubin 1.9 H (0.3-1.0) mg/dL Direct Bilirubin 0.7 H (0.0-0.2) mg/dL AST 65 H (13-39) Units/L ALT 74 H (7-52) Units/L Alkaline Phosphatase 87 (34-104) Units/L Albumin 3.8 (3.5-5.7) g/dL Urine 01/29/18 Range/Units 13:47 Urine Color Yellow (Yellow) Urine Clarity Clear (Clear) Urine pH 5.0 (5.0-8.0) pH Units Ur Specific [place] 1.015 (1.010-1.025) Urine Protein Negative (Neg-Trace) mg/dL Urine Glucose (UA) Normal (Normal) mg/dL - Impressions ITS Impressions Chest X-Ray 01/29/18 12:24 IMPRESSION: Cardiomegaly, vascular congestion, dependent pulmonary edema and small pleural effusions. D/ / Jewel Steward MD / Jewel Steward MD Interpreting Provider: Jewel Steward MD Chest CT 01/29/18 14:06 IMPRESSION: 1. Moderate to large bilateral pleural effusions with compressive atelectasis of the left lower lobe and right lower lobe. 2. Mild cardiomegaly. 3. Coronary artery disease. 4. Ascending thoracic aortic aneurysm, 4.2 cm in diameter. 5. Enlarged pulmonary artery suggestive of pulmonary hypertension. 6. Enlarged heterogeneous left lobe of the thyroid gland with coarse calcifications. Patient previously has had a thyroid scan on October 21, 2011. If further evaluation of the thyroid is desired, consider thyroid ultrasound on a nonemergent basis. D/ / 01/29/2018 14:30:10 Matthew Airta MD / [facility] Interpreting Provider: Matthew Arita MD
[2018-01-29] MEDS: Apixaban 5 MG TABLET PO SCH (20:11)
[2018-01-30 03:44] LABS: Basophils % 0.1 %; Hematocrit 30.9 % (37.5-50.1); Hemoglobin 10.1 g/dL (12.9-16.9); Immature Granulocytes % 0.2 % (0-4); Lymphocytes # 10.7 K/mcL (0.6-4.6); Lymphocytes % 65.9 %; Mean Corpuscular HGB Conc 32.7 g/dL (31.6-35.5); Mean Corpuscular Hemoglobin 29.6 pg (28.0-33.3); Mean Corpuscular Volume 90.6 fL (83.0-100.0); Mean Platelet Volume 11.6 fL (9.4-12.4); Monocytes # 0.8 K/mcL (0.0-1.3); Monocytes % 4.8 %; Neutrophils # 4.7 K/mcL (1.6-8.9); Red Blood Count 3.41 M/mcL (4.19-5.50)
[2018-01-30 03:48] LABS: Platelet Count 91 K/mcL (140-400)
[2018-01-30 04:08] LABS: Albumin 3.4 g/dL (3.5-5.7); Albumin/Globulin Ratio 1.5 (1.1-2.2); Bilirubin,Total 1.2 mg/dL (0.3-1.0); Calcium 8.9 mg/dL (8.6-10.3); Chol/HDL Ratio 5.1 (0-4.9); Globulin 2.2 g/dL (2.4-3.5); Phosphorous 3.7 mg/dL (2.7-4.5); Potassium 4.3 mEq/L (3.5-5.1); Total Protein 5.6 g/dL (6.4-8.9)
[2018-01-30 06:09] LABS: Platelet Estimate Decreased (Normal)
[2018-01-30] MEDS: Furosemide 20 MG/2 ML VIAL IVP SCH (07:54)
[2018-01-30] MEDS: Apixaban 5 MG TABLET PO SCH ×2 (07:54→20:35)
[2018-01-30] MEDS: Metoprolol XL (24 HR) Succ 25 MG TAB.ER.24H PO SCH (07:54)
[2018-01-30] MEDS: Isosorbide MONOnitrate (24 HR) 30 MG TAB.ER.24H PO SCH (07:54)
[2018-01-30 09:37] LABS: % Iron Saturation 3 % (20-55); Iron 13 mcg/dL (65-175); Transferrin 267 mg/dL (203-362)
[2018-01-30 09:55] LABS: Ferritin 107 ng/mL (20-250)
[2018-01-30 10:01] LABS: Folate 12.4 ng/mL (3.0-16.0)
[2018-01-30 10:05] LABS: Vitamin B12 > 1500 pg/mL (250-1100)
--- NOTE | 2018-01-30 15:17 | Internal Med Progress Note ---
Date of Encounter: 01/30/18 Time of Encounter: 15:05 - Assessment and plan (1) Diastolic heart failure Current Visit: No Status: Chronic Assessment and plan: January 30. He reports he did not have a discussion with his family about referral for mitral valve repair. BN peptide has improved slightly but azotemia has worsened with IV diuretics. IV Lasix will be discontinued at this time. Isosorbide and Toprol will be increased. Qualifiers: Heart failure chronicity: chronic Qualified Code(s): I50.32 - Chronic diastolic (congestive) heart failure (2) Atrial fibrillation with rapid ventricular response Current Visit: No Status: Acute Assessment and plan: January 30. Continue Eliquis and Cardizem. Increased Toprol as per above. (3) CLL (chronic lymphocytic leukemia) Current Visit: No Status: Chronic Assessment and plan: January 30. WBC stable at 16.2 K. (4) Hypertension Current Visit: No Status: Chronic Assessment and plan: January 30. Improved since admission. Continue Cardizem and increase metoprolol. Qualifiers: Hypertension type: essential hypertension Qualified Code(s): I10 - Essential (primary) hypertension (5) Hyperthyroidism Current Visit: No Status: Acute Assessment and plan: January 30. [facility] Continue symptomatic treatment with Toprol. (6) Gout Current Visit: No Status: Chronic Assessment and plan: January 30. Continue allopurinol Qualifiers: Gout site: unspecified site Gout etiology: unspecified cause Chronicity: chronic Presence of tophus: without tophus Qualified Code(s): M1A.9XX0 - Chronic gout, unspecified, without tophus (tophi) (7) Anemia Current Visit: No Status: Acute Assessment and plan: January 30. Anemia testing showed iron 13, transferrin saturation 3%, transferrin 267, ferritin 107, B12 > 1500, and folate 12.4. Start ferrous sulfate with vitamin C. Qualifiers: Anemia type: unspecified type Qualified Code(s): D64.9 - Anemia, unspecified (8) CKD (chronic kidney disease) stage 3, GFR 30-59 ml/min Current Visit: Yes Status: Acute Assessment and plan: January 30. Azotemia has worsened with IV Lasix. Discontinue this and monitor renal indices. - Subjective Interval history: January 30. He has no new complaints. - Constitutional Vitals: Temp Pulse Resp BP Pulse Ox 98.8 F 88 16 123/65 92 01/30/18 11:23 01/30/18 11:23 01/30/18 11:23 01/30/18 11:23 01/30/18 11:23 Exam: He is sitting on the side of bed and appears in no acute distress. His affect is bright and cheerful. I reviewed his medications and lab results. Internal Medicine: Result - Labs CBC & Chem 7: 01/30/18 03:29 01/30/18 03:29 Labs: Short CBC 01/30/18 Range/Units 03:29 WBC 16.2 H (4.3-11.1) K/mcL Hgb 10.1 L (12.9-16.9) g/dL Hct 30.9 L (37.5-50.1) % Plt Count 91 L (140-400) K/mcL Neutrophils # 4.7 (1.6-8.9) K/mcL BMP 01/30/18 03:29 Sodium 136 Potassium 4.3 Chloride 101 Carbon Dioxide 24 BUN 59 H Creatinine 2.24 H Glucose 135 H Calcium 8.9 Cardiac Enzymes 01/29/18 01/29/18 01/30/18 Range/Units 15:00 20:43 03:29 Troponin I 0.05 H* 0.05 H* 0.05 H* (< 0.04) ng/mL Liver Function 01/30/18 Range/Units 03:29 Total Bilirubin 1.2 H (0.3-1.0) mg/dL AST 59 H (13-39) Units/L ALT 70 H (7-52) Units/L Alkaline Phosphatase 77 (34-104) Units/L Albumin 3.4 L (3.5-5.7) g/dL - ABG Interpretation ABG results: PT/INR, D-dimer PT 23.5 Seconds (9.4-12.1) H 01/29/18 12:51 D-Dimer 861 ng/mLFEU (0-500) H 01/29/18 12:51 - Impressions Impressions Chest CT 01/29/18 14:06 IMPRESSION: 1. Moderate to large bilateral pleural effusions with compressive atelectasis of the left lower lobe and right lower lobe. 2. Mild cardiomegaly. 3. Coronary artery disease. 4. Ascending thoracic aortic aneurysm, 4.2 cm in diameter. 5. Enlarged pulmonary artery suggestive of pulmonary hypertension. 6. Enlarged heterogeneous left lobe of the thyroid gland with coarse calcifications. Patient previously has had a thyroid scan on October 21, 2011. If further evaluation of the thyroid is desired, consider thyroid ultrasound on a nonemergent basis. D/ / 01/29/2018 14:30:10 Matthew Arita MD / [facility] Interpreting Provider: Matthew Arita MD Consult Discharge Plan - Plan [facility]errals: [facility] [Primary Care Provider] -
[2018-01-31 04:16] LABS: Hematocrit 33.3 % (37.5-50.1); Hemoglobin 10.8 g/dL (12.9-16.9); Mean Corpuscular HGB Conc 32.4 g/dL (31.6-35.5); Mean Corpuscular Hemoglobin 29.4 pg (28.0-33.3); Mean Corpuscular Volume 90.7 fL (83.0-100.0); Mean Platelet Volume 12.5 fL (9.4-12.4); Platelet Count 114 K/mcL (140-400); Red Blood Count 3.67 M/mcL (4.19-5.50); Red Cell Distribution Width 17.1 % (11.5-14.5)
[2018-01-31 04:35] LABS: Potassium 4.6 mEq/L (3.5-5.1)
[2018-01-31 04:51] LABS: Anisocytosis 1+ (Not Present); Lymphocytes # 19.7 K/mcL (0.6-4.6); Monocytes # 1.1 K/mcL (0.0-1.3); Neutrophils # 7.3 K/mcL (1.6-8.9); Poikilocytosis 1+ (Not Present)
[2018-01-31 04:52] LABS: Platelet Estimate Slight Decrease (Normal); Toxic Granulation Present (Not Present)
[2018-01-31 04:53] LABS: Smudge Cells Present (Not Present); Toxic Vacuolation Present (Not Present)
[2018-01-31] MEDS: Ascorbic Acid 500 MG TABLET PO SCH (05:27)
[2018-01-31] MEDS: Metoprolol XL (24 HR) Succ 25 MG TAB.ER.24H PO SCH (07:51)
[2018-01-31] MEDS: Isosorbide MONOnitrate (24 HR) 30 MG TAB.ER.24H PO SCH (07:52)
[2018-01-31] MEDS: Apixaban 5 MG TABLET PO SCH ×2 (07:52→20:08)
--- NOTE | 2018-01-31 12:26 | Internal Med Progress Note ---
Date of Encounter: 01/31/18 Time of Encounter: 12:15 - Assessment and plan (1) Diastolic heart failure Current Visit: No Status: Chronic Assessment and plan: January 30. He reports he did not have a discussion with his family about referral for mitral valve repair. BN peptide has improved slightly but azotemia has worsened with IV diuretics. IV Lasix will be discontinued at this time. Isosorbide and Toprol will be increased. January 31. BN peptide improved to 1981. Continue present regimen. Qualifiers: Heart failure chronicity: chronic Qualified Code(s): I50.32 - Chronic diastolic (congestive) heart failure (2) Atrial fibrillation with rapid ventricular response Current Visit: No Status: Acute Assessment and plan: January 30. Continue Eliquis and Cardizem. Increased Toprol as per above. January 31. Continue Eliquis, Cardizem, and higher dose Toprol (3) CLL (chronic lymphocytic leukemia) Current Visit: No Status: Chronic Assessment and plan: January 30. WBC stable at 16.2 K. (4) Hypertension Current Visit: No Status: Chronic Assessment and plan: January 30. Improved since admission. Continue Cardizem and increase metoprolol. Qualifiers: Hypertension type: essential hypertension Qualified Code(s): I10 - Essential (primary) hypertension (5) Hyperthyroidism Current Visit: No Status: Acute Assessment and plan: January 30. [facility] Continue symptomatic treatment with Toprol. (6) Gout Current Visit: No Status: Chronic Assessment and plan: January 30. Continue allopurinol Qualifiers: Gout site: unspecified site Gout etiology: unspecified cause Chronicity: chronic Presence of tophus: without tophus Qualified Code(s): M1A.9XX0 - Chronic gout, unspecified, without tophus (tophi) (7) Anemia Current Visit: No Status: Acute Assessment and plan: January 30. Anemia testing showed iron 13, transferrin saturation 3%, transferrin 267, ferritin 107, B12 > 1500, and folate 12.4. Start ferrous sulfate with vitamin C. Qualifiers: Anemia type: unspecified type Qualified Code(s): D64.9 - Anemia, unspecified (8) CKD (chronic kidney disease) stage 3, GFR 30-59 ml/min Current Visit: Yes Status: Acute Assessment and plan: January 30. Azotemia has worsened with IV Lasix. Discontinue this and monitor renal indices. January 31. Creatinine has risen further to 2.61. Continue to monitor. Remain off diuretics. - Subjective Interval history: January 30. He has no new complaints. January 31. He reports feeling more dyspneic stay but has no other new complaints. - Constitutional Vitals: Temp Pulse Resp BP Pulse Ox 96.7 F L 93 16 154/81 90 01/31/18 07:14 01/31/18 07:14 01/31/18 07:14 01/31/18 07:14 01/31/18 07:14 Exam: He is sitting in a chair at bedside resting comfortably and appears in no acute distress. His affect is bright and cheerful. I reviewed his medications. I discussed pertinent lab results with him. Internal Medicine: Result - Labs CBC & Chem 7: 01/31/18 04:00 01/31/18 04:00 Labs: Short CBC 01/31/18 Range/Units 04:00 WBC 28.1 H D (4.3-11.1) K/mcL Hgb 10.8 L (12.9-16.9) g/dL Hct 33.3 L (37.5-50.1) % Plt Count 114 L (140-400) K/mcL Neutrophils # 7.3 (1.6-8.9) K/mcL BMP 01/31/18 04:00 Sodium 136 Potassium 4.6 Chloride 101 Carbon Dioxide 24 BUN 81 H Creatinine 2.61 H Glucose 107 H Calcium 9.0 - ABG Interpretation ABG results: PT/INR, D-dimer PT 23.5 Seconds (9.4-12.1) H 01/29/18 12:51 D-Dimer 861 ng/mLFEU (0-500) H 01/29/18 12:51 Consult Discharge Plan - Plan [facility]errals: [facility] [Primary Care Provider] -
[2018-01-31] MEDS: Magic Mouthwash 10 ML UD Cup PO SCH ×2 (14:59→16:54)
[2018-01-31] MEDS ORDERED: Sennosides/Docusate Sodium TABLET PO PRN (16:49)
[2018-02-01] MEDS: Ascorbic Acid 500 MG TABLET PO SCH (06:14)
[2018-02-01] MEDS: Isosorbide MONOnitrate (24 HR) 30 MG TAB.ER.24H PO SCH (07:53)
[2018-02-01] MEDS: Metoprolol XL (24 HR) Succ 25 MG TAB.ER.24H PO SCH (07:53)
[2018-02-01] MEDS: Apixaban 5 MG TABLET PO SCH ×2 (07:53→20:00)
[2018-02-01] MEDS: Magic Mouthwash 10 ML UD Cup PO SCH ×3 (07:53→16:53)
[2018-02-01 13:18] LABS: Calcium 8.9 mg/dL (8.6-10.3); Potassium 4.6 mEq/L (3.5-5.1)
--- NOTE | 2018-02-01 18:38 | Internal Med Progress Note ---
Date of Encounter: 02/01/18 Time of Encounter: 18:30 - Assessment and plan (1) Diastolic heart failure Current Visit: No Status: Chronic Assessment and plan: January 30. He reports he did not have a discussion with his family about referral for mitral valve repair. BN peptide has improved slightly but azotemia has worsened with IV diuretics. IV Lasix will be discontinued at this time. Isosorbide and Toprol will be increased. January 31. BN peptide improved to 1981. Continue present regimen. February 01. BN peptide has increased significantly to 3171. I told him he should have a discussion with family members and decide if he is willing to pursue aggressive intervention such as valve replacement or transition to hospice. Order echocardiogram to further evaluate. Qualifiers: Heart failure chronicity: chronic Qualified Code(s): I50.32 - Chronic diastolic (congestive) heart failure (2) Atrial fibrillation with rapid ventricular response Current Visit: No Status: Acute Assessment and plan: January 30. Continue Eliquis and Cardizem. Increased Toprol as per above. January 31. Continue Eliquis, Cardizem, and higher dose Toprol (3) CLL (chronic lymphocytic leukemia) Current Visit: No Status: Chronic Assessment and plan: January 30. WBC stable at 16.2 K. (4) Hypertension Current Visit: No Status: Chronic Assessment and plan: January 30. Improved since admission. Continue Cardizem and increase metoprolol. Qualifiers: Hypertension type: essential hypertension Qualified Code(s): I10 - Essential (primary) hypertension (5) Hyperthyroidism Current Visit: No Status: Acute Assessment and plan: January 30. [facility] Continue symptomatic treatment with Toprol. (6) Gout Current Visit: No Status: Chronic Assessment and plan: January 30. Continue allopurinol Qualifiers: Gout site: unspecified site Gout etiology: unspecified cause Chronicity: chronic Presence of tophus: without tophus Qualified Code(s): M1A.9XX0 - Chronic gout, unspecified, without tophus (tophi) (7) Anemia Current Visit: No Status: Acute Assessment and plan: January 30. Anemia testing showed iron 13, transferrin saturation 3%, transferrin 267, ferritin 107, B12 > 1500, and folate 12.4. Start ferrous sulfate with vitamin C. Qualifiers: Anemia type: unspecified type Qualified Code(s): D64.9 - Anemia, unspecified (8) CKD (chronic kidney disease) stage 3, GFR 30-59 ml/min Current Visit: Yes Status: Acute Assessment and plan: January 30. Azotemia has worsened with IV Lasix. Discontinue this and monitor renal indices. January 31. Creatinine has risen further to 2.61. Continue to monitor. Remain off diuretics. February 01. Creatinine has improved to 2.36. Continue to monitor. - Subjective Interval history: January 30. He has no new complaints. January 31. He reports feeling more dyspneic stay but has no other new complaints. February 01. He has no new complaints. He is still dyspneic. - Constitutional Vitals: Temp Pulse Resp BP Pulse Ox 98 F 94 18 131/85 94 02/01/18 07:26 02/01/18 07:26 02/01/18 07:26 02/01/18 07:26 02/01/18 07:26 Exam: He is sitting in a chair at bedside. He is slightly dyspneic while talking. His affect is cheerful. I reviewed his medications and lab results. Internal Medicine: Result - Labs CBC & Chem 7: 01/31/18 04:00 02/01/18 12:55 Labs: BMP 02/01/18 12:55 Sodium 135 L Potassium 4.6 Chloride 101 Carbon Dioxide 21 L BUN 81 H Creatinine 2.36 H Glucose 146 H Calcium 8.9 - ABG Interpretation ABG results: PT/INR, D-dimer PT 23.5 Seconds (9.4-12.1) H 01/29/18 12:51 D-Dimer 861 ng/mLFEU (0-500) H 01/29/18 12:51 Consult Discharge Plan - Plan [facility]errals: [facility] [Primary Care Provider] -
[2018-02-02] MEDS: Ascorbic Acid 500 MG TABLET PO SCH (06:28)
[2018-02-02 06:39] VITALS: BP 108/78
[2018-02-02] MEDS: Isosorbide MONOnitrate (24 HR) 30 MG TAB.ER.24H PO SCH (08:25)
[2018-02-02] MEDS: Magic Mouthwash 10 ML UD Cup PO SCH ×3 (08:25→17:36)
[2018-02-02] MEDS: Apixaban 5 MG TABLET PO SCH (08:26)
[2018-02-02] MEDS: Metoprolol XL (24 HR) Succ 25 MG TAB.ER.24H PO SCH (08:26)
--- NOTE | 2018-02-02 12:19 | Discharge Summary ---
Orders not resulted at time of discharge: Pending orders 01/29/18 14:31 Culture,Blood [BC] Stat Date of Encounter: 02/02/18 Time of Encounter: 11:30 - Discharge Diagnosis (1) Mitral chordae rupture Priority: Primary Status: Acute (2) Diastolic heart failure Priority: Secondary Status: Chronic Qualifiers: Heart failure chronicity: chronic Qualified Code(s): I50.32 - Chronic diastolic (congestive) heart failure (3) Atrial fibrillation with rapid ventricular response Priority: Secondary Status: Acute (4) CLL (chronic lymphocytic leukemia) Priority: Secondary Status: Chronic (5) Hypertension Priority: Secondary Status: Chronic Qualifiers: Hypertension type: essential hypertension Qualified Code(s): I10 - Essential (primary) hypertension (6) Hyperthyroidism Priority: Secondary Status: Acute (7) Gout Priority: Secondary Status: Chronic Qualifiers: Gout site: unspecified site Gout etiology: unspecified cause Chronicity: chronic Presence of tophus: without tophus Qualified Code(s): M1A.9XX0 - Chronic gout, unspecified, without tophus (tophi) (8) Anemia Priority: Secondary Status: Acute Qualifiers: Anemia type: unspecified type Qualified Code(s): D64.9 - Anemia, unspecified (9) CKD (chronic kidney disease) stage 3, GFR 30-59 ml/min Priority: Secondary Status: Acute Hospital course: Mr. Gillis is a 87 year old male who came to emergency room stating he had increased dyspnea over the past month with worsening the past 1-2 days. He reports a cough productive of minimal whitish sputum. He denies chest pain. He has had orthopnea. He was evaluated in emergency room and felt to have exacerbation of heart failure and possible pneumonia. He was admitted to [facility] floor for ongoing care needs. Initial orders were written by the emergency room physician. I saw him on January 29 and performed a history and physical. He was treated medically with Toprol, Cardizem, Lasix, and Imdur. Lasix was discontinued the following day when creatinine jenaro. He remained symptomatic and BN peptide jenaro to 3171 on February 01. I had a narciso discussion with the patient and family February 01 and told him he should either be referred for aggressive intervention/mitral valve repair or consider transitioning to hospice. After discussion with family he chose to be referred and contact was made with [facility]. He was accepted in transfer the afternoon of February 02. An echocardiogram was done the morning of February 02 with report pending at time of discharge. Atrial fibrillation rate remained controlled on metoprolol and Cardizem. Eliquis was continued for CVA prophylaxis. The WBC remained elevated but stable from CLL. He declined workup at [facility] a few weeks ago for hyperthyroidism. Toprol was used to control ventricular response rate. Endocrinology can hopefully evaluate during his stay at [facility]. Anemia testing showed iron 13, transferrin saturation 3%, transferrin 267, ferritin 107, B12> 1500, and folate 12.4. He was started on ferrous sulfate with vitamin C. Creatinine jenaro from 2.00 on admission to 2.61 on January 31 but had improved to 2.36 by the following day. This can be monitored at [facility]. - Time Spent with Patient Total time spent providing and/or coordinating discharge services: - Discharge Medications Home Medications: Allopurinol [Zyloprim 100 MG] 100 mg PO DAILY 07/23/16 [History] Calcium Carbonate [Calcium] 500 mg PO BID 07/23/16 [History] Omeprazole 20 mg PO DAILY 11/18/17 [History] Diltiazem CD (24hr) [Cardizem CD] 120 mg PO DAILY #30 cap.er.24h 11/19/17 [Rx] Metoprolol XL (24 HR) Succ [Toprol XL] 25 mg PO DAILY #30 tab.er.24h 11/19/17 [R x] Furosemide [Lasix] 10 mg PO DAILY 01/29/18 [History] Allergies/Adverse Reactions: Allergy/AdvReac Type Severity Reaction Status Date / Time No Known Allergies Allergy Verified 01/29/18 12:09 Date of admission: 01/30/18 15:24 Primary care physician: PCP ID Consults: 01/30/18 15:25 Consult to Occupational Therapy [CONS] Routine Comment: Evaluate, develop and implement POC Reason for Consult: Weakness Does patient have active BEDREST order?: No Is patient medically & hemodynamically stable?: Yes Patient assessed for mobility or mobilized this visit?: Yes Consult to Physical Therapy [CONS] Routine Comment: Evaluate, develop and implement POC Reason for Consult: Weakness Does patient have active BEDREST order?: No Is patient medically & hemodynamically stable?: Yes Patient assessed for mobility or mobilized this visit?: Yes - Constitutional Vitals: Temp Pulse Resp BP Pulse Ox 98 F 76 17 108/78 97 02/02/18 06:38 02/02/18 06:38 02/02/18 06:38 02/02/18 06:38 02/02/18 06:38 - Patient Status Disposition: Transfer Other Condition: Fair - Discharge Instructions
--- NOTE | 2018-02-02 14:09 | Electrocardiograph Report ---
[address] [address] Test Date: 2018-01-29 Pat Name: Chris Gillis Department: [id number] Room: [facility] Gender: M Stand Grinder: [id number] : [id number] Requested By: Marleen Guerra Order Number: [id number] Reading MD: David Gonzales Measurements Intervals [place] Rate: 83 P: RI: 0 QRS: 41 QRSD: 98 T: 48 QT: 372 QTc: 412 Interpretive Statements ATRIAL FIBRILLATION LOW QRS VOLTAGE IN EXTREMITY LEADS ABNORMAL RHYTHM ECG Electronically Signed On 02-02-2018 14:08:28 EDT by David Gonzales
== END 2018-02-02 18:39 | disposition other institution (70) | DRG 306 ==
LOC: INPPIK 12:08 → EMEROOPIK 12:08 → INPPIK 15:14
PROVIDERS: ADMIT Internal Medicine; ATTEND Internal Medicine

== ENCOUNTER 2018-02-15 14:07 | Inpatient (IN) ==
[2018-02-15] MEDS: Bumetanide 1 MG TABLET PO SCH (20:19)
[2018-02-15] MEDS: Apixaban 5 MG TABLET PO SCH (20:19)
[2018-02-16] MEDS: Metoprolol XL (24 HR) Succ 25 MG TAB.ER.24H PO SCH (09:45)
[2018-02-16] MEDS: Ascorbic Acid 500 MG TABLET PO SCH (09:45)
[2018-02-16] MEDS: Isosorbide MONOnitrate (24 HR) 60 MG TAB.ER.24H PO SCH (09:45)
[2018-02-16] MEDS: Apixaban 5 MG TABLET PO SCH ×2 (09:45→21:33)
[2018-02-16] MEDS: Diltiazem CD (24hr) 120 MG CAPSULE PO SCH (09:54)
--- NOTE | 2018-02-16 14:50 | Internal Med History&Physical ---
Date of Encounter: 02/16/18 Time of Encounter: 14:30 Assessment and Plan (1) Mitral chordae rupture Current visit: No Status: Acute Anticipated mitral clip surgery in approximately 2 weeks. (2) Atrial fibrillation with rapid ventricular response Current visit: No Status: Acute Continue Toprol, Cardizem, and Eliquis. (3) CLL (chronic lymphocytic leukemia) Current visit: No Status: Chronic As per oncologist (4) Edema Current visit: No Status: Acute Continue Bumex 0.5 mg every other day. Qualifiers: Edema type: unspecified Qualified Code(s): R60.9 - Edema, unspecified (5) Hyperthyroidism Current visit: No Status: Acute Continue metoprolol for rate control. (6) Diastolic heart failure Current visit: No Status: Chronic Continue metoprolol, Imdur, and Bumex Qualifiers: Heart failure chronicity: chronic Qualified Code(s): I50.32 - Chronic diastolic (congestive) heart failure (7) Anemia Current visit: No Status: Acute Anemia testing 01/30/2018 showed iron 13, transferrin saturation 3%, transferrin 267, ferritin 107, B12 > 1500, and folate 12.4. Continue ferrous sulfate with ascorbic acid. Qualifiers: Anemia type: unspecified type Qualified Code(s): D64.9 - Anemia, unspecified (8) Thrombocytopenia Current visit: No Status: Chronic Monitor platelet count. (9) CKD (chronic kidney disease) stage 3, GFR 30-59 ml/min Current visit: No Status: Acute Monitor renal indices. Internal Medicine - H&P: HPI Chief complaint: Dyspnea Admitted From: Hospital to Hospital Transfer Plans for Post Hospital Care: Home History of present illness: Mr. Gillis is a 87 year old male who was admitted to [facility] swing bed following February 02-February 15 hospitalization at [place]. He had been transferred from [facility] to [place] for intervention for flail posterior mitral valve leaflet with heart failure and dyspnea. Echocardiogram 02/02/2018 showed LVEF 60%, indeterminate diastolic function, atrial fibrillation, biatrial enlargement, posterior mitral valve leaflet prolapse, mild aortic regurgitation, moderate tricuspid regurgitation, moderate pulmonic regurgitation, and severe pulmonary hypertension with estimated RVSP of 85 mmHg. 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 He reports transesophageal echocardiogram and LHC were done during his [place] stay. No written reports are available but the patient reports no intervention was recommended after heart cath findings. He will return to [place] in a few days for a mitral clip procedure. Cardiovascular history is significant otherwise for hypertension but no known NE DVT or pulmonary embolus. Past Med Surg Social Fam HX - Past Medical History Medical history: arthritis, cardiomyopathy, GERD, hypertension, other Additional medical history: MITRAL VALVE REGURGITATION, [place],GOUT Psychiatric history: no psych history - Past Surgical History Surgical History: cholecystectomy Additional surgical history: Surgery on left arm with hardware. - Social History Smoking Status: Never smoker Smokeless Tobacco Status: No Alcohol use: none Drug use: none - Family History Father Living Status: Hx Family Cancer: Yes (Hodgkins) Internal Medicine - H&P: Meds Allopurinol [Zyloprim 100 MG] 100 mg PO DAILY 07/23/16 [History] Calcium Carbonate [Calcium] 500 mg PO BID 07/23/16 [History] Diltiazem CD (24hr) [Cardizem CD] 120 mg PO DAILY #30 cap.er.24h 11/19/17 [Rx] Metoprolol XL (24 HR) Succ [Toprol XL] 25 mg PO DAILY #30 tab.er.24h 11/19/17 [Rx] Apixaban [Eliquis] 2.5 mg PO BID 02/15/18 [History] Ascorbic Acid [Vitamin C] 250 mg PO DAILY 02/15/18 [History] Bumetanide [Bumex] 0.5 mg PO Q48H 02/15/18 [History] Ferrous Sulfate [Iron] 325 mg PO DAILY 02/15/18 [History] Isosorbide MONOnitrate (24 HR) [Imdur] 60 mg PO DAILY 02/15/18 [History] Pantoprazole Sodium [Protonix] 40 mg PO DAILY 02/15/18 [History] Allergy/AdvReac Type Severity Reaction Status Date / Time No Known Allergies Allergy Verified 01/29/18 12:09 All Systems PM: A 10-system review of systems was performed and is negative for pertinent findings except as documented above in the HPI. Review of systems: Review of systems from his January 2018 [facility] hospitalization were reviewed and revised as below. Gen.: His weight has remained stable at approximate 63 kg since the November 2017 [facility] hospitalization. Cardiovascular: As per history of present illness Respiratory: He is a lifelong nonsmoker and has no known chronic lung disease GI: He has had cholecystectomy. He denies disorders of his liver or exocrine pancreas :. He has BPH and chronic kidney disease. He denies other kidney bladder prostate disorders. Neurologic: He denies large distribution strokes or seizures. Endocrine: He has history of goiter with hyperthyroidism but does not know details and is not receiving treatment. He denies diabetes or hyperlipidemia. He does not recall being seen by an diesel retrofit installer during his recent [place] hospitalization. Hematology/oncology: He has had anemia in the past. He was diagnosed with CLL approximately 2005 and is following with Dr. Andrews in [place]. He denies other internal malignancies. Psychiatric: He denies anxiety depression or other mental health issues [place] skeletal: He had remote left arm fracture. He has DJD and gout. He denies other bone joint or muscle disorders. - Constitutional Vitals: Temp Pulse Resp BP Pulse Ox 98.0 F 92 17 103/66 96 02/16/18 11:56 02/16/18 11:56 02/16/18 11:56 02/16/18 11:56 02/16/18 11:56 Exam: Gen.: He is a well-developed well-nourished male who appears in no acute distress at present time HEENT: Head is atraumatic and normocephalic. Eyes: EOMI. There is no scleral icterus. Mouth: Mucosa is moist. Neck: Supple and nontender. There is no thyromegaly or adenopathy noted. Heart: Irregularly irregular with a 2-3/6 systolic murmur at the apex radiating to the axilla. Abdomen: Soft and nontender. No masses or guarding are noted. Extremities: He has 1-2+ edema of the dorsum of the feet and lower anterior shins bilaterally. Dorsalis pedis and posttibial pulses are not palpable. He has significant DJD changes of his hands. Neurologic: Mental status: He is talkative and a good historian. Cranial nerves: Smile is symmetric. Forehead wrinkles bilaterally. Tongue protrudes midline. EOMI. Motor: There is no pronator drift. Cerebellar: Finger to nose is intact bilaterally. Skin: Warm and dry
[2018-02-17] MEDS: Ascorbic Acid 500 MG TABLET PO SCH (10:25)
[2018-02-17] MEDS: Metoprolol XL (24 HR) Succ 25 MG TAB.ER.24H PO SCH (10:25)
[2018-02-17] MEDS: Diltiazem CD (24hr) 120 MG CAPSULE PO SCH (10:25)
[2018-02-17] MEDS: Isosorbide MONOnitrate (24 HR) 60 MG TAB.ER.24H PO SCH (10:25)
[2018-02-17] MEDS: Apixaban 5 MG TABLET PO SCH ×2 (10:25→22:10)
[2018-02-17] MEDS: Bumetanide 1 MG TABLET PO SCH (16:22)
--- NOTE | 2018-02-17 17:25 | Internal Med Progress Note ---
Date of Encounter: 02/17/18 Time of Encounter: 17:15 - Assessment and plan (1) Mitral chordae rupture Current Visit: No Status: Acute Assessment and plan: February 17. Anticipate mitral clip surgery March 05. (2) Atrial fibrillation with rapid ventricular response Current Visit: No Status: Acute Assessment and plan: February 17. 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 As per oncologist (4) Edema Current Visit: No Status: Acute Assessment and plan: February 17. Continue Bumex. Check labs in a.m. Qualifiers: Edema type: unspecified Qualified Code(s): R60.9 - Edema, unspecified (5) Hyperthyroidism Current Visit: No Status: Acute Assessment and plan: February 17. Continue metoprolol for rate control (6) Diastolic heart failure Current Visit: No Status: Chronic Assessment and plan: February 17. Continue metoprolol, Imdur, and Bumex. Check labs in a.m. Qualifiers: Heart failure chronicity: chronic Qualified Code(s): I50.32 - Chronic diastolic (congestive) heart failure (7) Anemia Current Visit: No Status: Acute Assessment and plan: February 17. Anemia testing 01/30/2018 showed iron 13, transferrin saturation 3%, transferrin 267, ferritin 107, B12 > 1500, and folate 12.4. Continue ferrous sulfate with ascorbic acid. Qualifiers: Anemia type: unspecified type Qualified Code(s): D64.9 - Anemia, unspecified (8) Thrombocytopenia Current Visit: No Status: Chronic Assessment and plan: February 17. Monitor platelet count (9) CKD (chronic kidney disease) stage 3, GFR 30-59 ml/min Current Visit: No Status: Acute Assessment and plan: February 17. Monitor renal indices. - Subjective Interval history: February 17. He has no new complaints and feels well. - Constitutional Vitals: Temp Pulse Resp BP Pulse Ox 97.7 F 90 18 114/71 94 02/17/18 06:41 02/17/18 06:41 02/17/18 06:41 02/17/18 06:41 02/17/18 06:41 Exam: He is resting comfortably in a chair and appears in no acute distress. His affect is bright and cheerful. I reviewed his medications and past lab results. Consult Discharge Plan - Plan [facility] Provider[facility] - 1 week
[2018-02-18 06:20] LABS: Hemoglobin 8.9 g/dL (12.9-16.9); Mean Corpuscular HGB Conc 31.8 g/dL (31.6-35.5); Mean Corpuscular Hemoglobin 30.2 pg (28.0-33.3); Mean Corpuscular Volume 94.9 fL (83.0-100.0); Mean Platelet Volume 12.1 fL (9.4-12.4); Platelet Count 104 K/mcL (140-400); Red Blood Count 2.95 M/mcL (4.19-5.50); Red Cell Distribution Width 20.3 % (11.5-14.5)
[2018-02-18 06:46] LABS: Calcium 8.7 mg/dL (8.6-10.3); Potassium 4.4 mEq/L (3.5-5.1)
[2018-02-18 07:35] LABS: Anisocytosis 2+ (Not Present); Lymphocytes # 11.3 K/mcL (0.6-4.6); Neutrophils # 1.8 K/mcL (1.6-8.9); Reactive Lymphocytes Present (Not Present)
[2018-02-18 07:36] LABS: Ovalocytes 1+ (Not Present); Poikilocytosis 1+ (Not Present)
[2018-02-18 07:37] LABS: Platelet Estimate Decreased (Normal)
[2018-02-18] MEDS: Ascorbic Acid 500 MG TABLET PO SCH (09:50)
[2018-02-18] MEDS: Diltiazem CD (24hr) 120 MG CAPSULE PO SCH (09:50)
[2018-02-18] MEDS: Apixaban 5 MG TABLET PO SCH ×2 (09:50→20:35)
[2018-02-18] MEDS: Isosorbide MONOnitrate (24 HR) 60 MG TAB.ER.24H PO SCH (09:50)
[2018-02-18] MEDS: Metoprolol XL (24 HR) Succ 25 MG TAB.ER.24H PO SCH (09:51)
--- NOTE | 2018-02-18 15:52 | Internal Med Progress Note ---
Date of Encounter: 02/18/18 Time of Encounter: 15:40 - Assessment and plan (1) Mitral chordae rupture Current Visit: No Status: Acute Assessment and plan: February 17. Anticipate mitral clip surgery March 05. (2) Atrial fibrillation with rapid ventricular response Current Visit: No Status: Acute Assessment and plan: February 17. 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 As per oncologist (4) Edema Current Visit: No Status: Acute Assessment and plan: February 17. Continue Bumex. Check labs in a.m. February 18. BN peptide improved significantly to 944. Continue present regimen. Qualifiers: Edema type: unspecified Qualified Code(s): R60.9 - Edema, unspecified (5) Hyperthyroidism Current Visit: No Status: Acute Assessment and plan: February 17. Continue metoprolol for rate control (6) Diastolic heart failure Current Visit: No Status: Chronic Assessment and plan: February 17. Continue metoprolol, Imdur, and Bumex. Check labs in a.m. February 18. BN peptide improved to 944. Continue present regimen. Qualifiers: Heart failure chronicity: chronic Qualified Code(s): I50.32 - Chronic diastolic (congestive) heart failure (7) Anemia Current Visit: No Status: Acute Assessment and plan: February 17. Anemia testing 01/30/2018 showed iron 13, transferrin saturation 3%, transferrin 267, ferritin 107, B12 > 1500, and folate 12.4. Continue ferrous sulfate with ascorbic acid. February 18. Hemoglobin decreased to 8.9. Continue to monitor. Qualifiers: Anemia type: unspecified type Qualified Code(s): D64.9 - Anemia, unspecified (8) Thrombocytopenia Current Visit: No Status: Chronic Assessment and plan: February 17. Monitor platelet count (9) CKD (chronic kidney disease) stage 3, GFR 30-59 ml/min Current Visit: No Status: Acute Assessment and plan: February 17. Monitor renal indices. February 18. Creatinine improved 1.95 with estimated GFR 33. Continue to monitor. - Subjective Interval history: February 17. He has no new complaints and feels well. February 18. He has no new complaints. - Constitutional Vitals: Temp Pulse Resp BP Pulse Ox 98.0 F 89 16 118/76 96 02/18/18 06:34 02/18/18 06:34 02/18/18 11:51 02/18/18 06:34 02/17/18 18:00 Exam: He is sitting on the side of bed resting comfortably and appears in no acute distress. His affect is bright and cheerful. I reviewed his medications and lab results. Internal Medicine: Result - Labs CBC & Chem 7: 02/18/18 05:44 02/18/18 05:44 Labs: Short CBC 02/18/18 Range/Units 05:44 WBC 15.2 H (4.3-11.1) K/mcL Hgb 8.9 L (12.9-16.9) g/dL Hct 28.0 L (37.5-50.1) % Plt Count 104 L (140-400) K/mcL Neutrophils # 1.8 (1.6-8.9) K/mcL BMP 02/18/18 05:44 Sodium 138 Potassium 4.4 Chloride 102 Carbon Dioxide 27 BUN 44 H Creatinine 1.95 H Glucose 99 Calcium 8.7 Consult Discharge Plan - Plan [facility]errals: [facility] [Primary Care Provider[facility] - 1 week
[2018-02-19] MEDS: Isosorbide MONOnitrate (24 HR) 60 MG TAB.ER.24H PO SCH (09:26)
[2018-02-19] MEDS: Ascorbic Acid 500 MG TABLET PO SCH (09:36)
[2018-02-19] MEDS: Apixaban 5 MG TABLET PO SCH ×2 (09:36→21:41)
[2018-02-19] MEDS: Metoprolol XL (24 HR) Succ 25 MG TAB.ER.24H PO SCH (09:37)
[2018-02-19] MEDS: Diltiazem CD (24hr) 120 MG CAPSULE PO SCH (09:38)
[2018-02-19] MEDS: Bumetanide 1 MG TABLET PO SCH (17:55)
[2018-02-20] MEDS: Ascorbic Acid 500 MG TABLET PO SCH (10:19)
[2018-02-20] MEDS: Isosorbide MONOnitrate (24 HR) 60 MG TAB.ER.24H PO SCH (10:19)
[2018-02-20] MEDS: Metoprolol XL (24 HR) Succ 25 MG TAB.ER.24H PO SCH (10:19)
[2018-02-20] MEDS: Diltiazem CD (24hr) 120 MG CAPSULE PO SCH (10:20)
[2018-02-20] MEDS: Apixaban 5 MG TABLET PO SCH ×2 (10:20→20:05)
[2018-02-21] MEDS: Diltiazem CD (24hr) 120 MG CAPSULE PO SCH (08:29)
[2018-02-21] MEDS: Isosorbide MONOnitrate (24 HR) 60 MG TAB.ER.24H PO SCH (08:29)
[2018-02-21] MEDS: Metoprolol XL (24 HR) Succ 25 MG TAB.ER.24H PO SCH (08:29)
[2018-02-21] MEDS: Ascorbic Acid 500 MG TABLET PO SCH (08:31)
[2018-02-21] MEDS: Apixaban 5 MG TABLET PO SCH ×2 (08:32→20:16)
--- NOTE | 2018-02-21 10:20 | Internal Med Progress Note ---
Date of Encounter: 02/21/18 Time of Encounter: 10:05 - Assessment and plan (1) Mitral chordae rupture Current Visit: No Status: Acute Assessment and plan: February 17. Anticipate mitral clip surgery March 05. (2) Atrial fibrillation with rapid ventricular response Current Visit: No Status: Acute Assessment and plan: February 17. 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 As per oncologist (4) Edema Current Visit: No Status: Acute Assessment and plan: February 17. Continue Bumex. Check labs in a.m. February 18. BN peptide improved significantly to 944. Continue present regimen. Qualifiers: Edema type: unspecified Qualified Code(s): R60.9 - Edema, unspecified (5) Hyperthyroidism Current Visit: No Status: Acute Assessment and plan: February 17. Continue metoprolol for rate control February 21. He has an appointment to see an ENT after discharge from swing bed. (6) Diastolic heart failure Current Visit: No Status: Chronic Assessment and plan: February 17. Continue metoprolol, Imdur, and Bumex. Check labs in a.m. February 18. BN peptide improved to 944. Continue present regimen. Qualifiers: Heart failure chronicity: chronic Qualified Code(s): I50.32 - Chronic diastolic (congestive) heart failure (7) Anemia Current Visit: No Status: Acute Assessment and plan: February 17. Anemia testing 01/30/2018 showed iron 13, transferrin saturation 3%, transferrin 267, ferritin 107, B12 > 1500, and folate 12.4. Continue ferrous sulfate with ascorbic acid. February 18. Hemoglobin decreased to 8.9. Continue to monitor. Qualifiers: Anemia type: unspecified type Qualified Code(s): D64.9 - Anemia, unspecified (8) Thrombocytopenia Current Visit: No Status: Chronic Assessment and plan: February 17. Monitor platelet count (9) CKD (chronic kidney disease) stage 3, GFR 30-59 ml/min Current Visit: No Status: Acute Assessment and plan: February 17. Monitor renal indices. February 18. Creatinine improved 1.95 with estimated GFR 33. Continue to monitor. - Subjective Interval history: February 17. He has no new complaints and feels well. February 18. He has no new complaints. He denies dyspnea on ambulation. - Constitutional Vitals: Temp Pulse Resp BP Pulse Ox 97.8 F 96 20 130/81 94 02/21/18 08:00 02/21/18 08:00 02/21/18 08:00 02/21/18 08:00 02/21/18 08:00 Exam: He is resting comfortably in a chair at bedside. His affect is bright and cheerful. I reviewed his medications and lab results. Internal Medicine: Result - Labs CBC & Chem 7: 02/18/18 05:44 02/18/18 05:44 Consult Discharge Plan - Plan [facility]: [facility] [Primary Care Provider[facility] - 1 week
[2018-02-21] MEDS: Bumetanide 1 MG TABLET PO SCH (17:51)
[2018-02-22 05:51] LABS: Hematocrit 28.2 % (37.5-50.1); Hemoglobin 8.9 g/dL (12.9-16.9); Mean Corpuscular HGB Conc 31.6 g/dL (31.6-35.5); Mean Corpuscular Hemoglobin 30.3 pg (28.0-33.3); Mean Corpuscular Volume 95.9 fL (83.0-100.0); Mean Platelet Volume 11.8 fL (9.4-12.4); Platelet Count 127 K/mcL (140-400); Red Blood Count 2.94 M/mcL (4.19-5.50); Red Cell Distribution Width 19.9 % (11.5-14.5)
[2018-02-22 06:12] LABS: Calcium 8.7 mg/dL (8.6-10.3); Potassium 4.2 mEq/L (3.5-5.1)
[2018-02-22 06:38] LABS: Eosinophils # 0.5 K/mcL (0.0-0.6); Lymphocytes # 9.9 K/mcL (0.6-4.6); Neutrophils # 2.3 K/mcL (1.6-8.9)
[2018-02-22 06:39] LABS: Platelet Estimate Decreased (Normal); Poikilocytosis 1+ (Not Present); Polychromasia 1+ (Not Present)
[2018-02-22 06:42] LABS: Anisocytosis 2+ (Not Present); Basophilic Stippling 1+ (Not Present)
[2018-02-22 07:01] LABS: Toxic Granulation Present (Not Present)
[2018-02-22 07:34] VITALS: BP 122/87
[2018-02-22] MEDS: Isosorbide MONOnitrate (24 HR) 60 MG TAB.ER.24H PO SCH (07:45)
[2018-02-22] MEDS: Diltiazem CD (24hr) 120 MG CAPSULE PO SCH (07:45)
[2018-02-22] MEDS: Metoprolol XL (24 HR) Succ 25 MG TAB.ER.24H PO SCH (07:45)
[2018-02-22] MEDS: Ascorbic Acid 500 MG TABLET PO SCH (07:45)
[2018-02-22] MEDS: Apixaban 5 MG TABLET PO SCH (07:46)
--- NOTE | 2018-02-22 10:06 | Discharge Summary ---
Date of Encounter: 02/22/18 Time of Encounter: 09:30 - Discharge Diagnosis (1) Mitral chordae rupture Priority: Primary Status: Acute (2) Atrial fibrillation with rapid ventricular response Priority: Secondary Status: Acute (3) CLL (chronic lymphocytic leukemia) Priority: Secondary Status: Chronic (4) Edema Priority: Secondary Status: Acute Qualifiers: Edema type: unspecified Qualified Code(s): R60.9 - Edema, unspecified (5) Hyperthyroidism Priority: Secondary Status: Acute (6) Diastolic heart failure Priority: Secondary Status: Chronic Qualifiers: Heart failure chronicity: chronic Qualified Code(s): I50.32 - Chronic diastolic (congestive) heart failure (7) Anemia Priority: Secondary Status: Acute Qualifiers: Anemia type: unspecified type Qualified Code(s): D64.9 - Anemia, unspecified (8) Thrombocytopenia Priority: Secondary Status: Chronic (9) CKD (chronic kidney disease) stage 3, GFR 30-59 ml/min Priority: Secondary Status: Chronic Hospital course: Mr. Gillis is a 87 year old male who was admitted to [facility] swing bed following February 02-February 15 hospitalization at [place]. He had been transferred from [facility] to [place] for intervention for flail posterior mitral valve leaflet with heart failure and dyspnea. Echocardiogram 02/02/2018 showed LVEF 60%, indeterminate diastolic function, atrial fibrillation, biatrial enlargement, posterior mitral valve leaflet prolapse, mild aortic regurgitation, moderate tricuspid regurgitation, moderate pulmonic regurgitation, and severe pulmonary hypertension with estimated RVSP of 85 mmHg. 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 He reports transesophageal echocardiogram and LHC were done during his [place] stay. No written reports are available but the patient reports no intervention was recommended after heart cath findings. He will return to [place] in a few days for a mitral clip procedure. He had ongoing physical therapy and occupational therapy during his swing bed stay. He had gradual clinical improvement overall in stamina and strength. Follow-up lab work on day of discharge showed hemoglobin stable at 8.9, platelet count 127K, BUN and creatinine 44 and 1.90 respectively, and BN peptide 934. Heart failure symptoms were controlled with Toprol, Imdur, and Bumex. Ventricular response to atrial fibrillation was controlled with Toprol, Cardizem, and Eliquis. He will be discharged home and follow with his PCP team at [facility] within 1 week. - Time Spent with Patient Total time spent providing and/or coordinating discharge services: - Discharge Medications Prescriptions: Ascorbic Acid [Vitamin C] 500 mg PO DAILY #30 tablet Bumetanide [Bumex] 0.5 mg PO Q48H #15 tablet Ferrous Sulfate [Iron] 325 mg PO DAILY #30 tablet Isosorbide MONOnitrate (24 HR) [Imdur] 60 mg PO DAILY #30 tab.er.24h Home Medications: Allopurinol [Zyloprim 100 MG] 100 mg PO DAILY 07/23/16 [History] Calcium Carbonate [Calcium] 500 mg PO BID 07/23/16 [History] Diltiazem CD (24hr) [Cardizem CD] 120 mg PO DAILY #30 cap.er.24h 11/19/17 [Rx] Metoprolol XL (24 HR) Succ [Toprol Xl] 25 mg PO DAILY #30 tab.er.24h 11/19/17 [Rx] Apixaban [Eliquis] 2.5 mg PO BID 02/15/18 [History] Ascorbic Acid [Vitamin C] 500 mg PO DAILY #30 tablet 02/22/18 [Rx] Bumetanide [Bumex] 0.5 mg PO Q48H #15 tablet 02/22/18 [Rx] Ferrous Sulfate [Iron] 325 mg PO DAILY #30 tablet 02/22/18 [Rx] Isosorbide MONOnitrate (24 HR) [Imdur] 60 mg PO DAILY #30 tab.er.24h 02/22/18 [Rx] Pantoprazole Sodium [Protonix] 40 mg PO DAILY PRN #0 02/22/18 [Rx] Allergies/Adverse Reactions: Allergy/AdvReac Type Severity Reaction Status Date / Time No Known Allergies Allergy Verified 01/29/18 12:09 Date of admission: 02/15/18 18:52 Primary care physician: PCP [place] Consults: 02/15/18 18:38 Consult to Occupational Therapy [CONS] Routine Comment: Evaluate, develop and implement POC Reason for Consult: Evaluate, develop and implement POC Does patient have active BEDREST order?: No Is patient medically & hemodynamically stable?: Yes Patient assessed for mobility or mobilized this visit?: No Consult to Physical Therapy [CONS] Routine Comment: Evaluate, develop and implement POC Reason for Consult: Evaluate, develop and implement POC Does patient have active BEDREST order?: No Is patient medically & hemodynamically stable?: Yes Patient assessed for mobility or mobilized this visit?: No - Constitutional Vitals: Temp Pulse Resp BP Pulse Ox 97.6 F 85 18 122/87 93 02/22/18 07:33 02/22/18 07:33 02/22/18 07:33 02/22/18 07:33 02/22/18 07:33 - Patient Status Disposition: Home Health Service - Discharge Instructions Instructions: Atrial Fibrillation (DC), Chronic Hypertension (DC), Anemia (GEN), Pneumonia (DC) [facility] - 1 week - Diet and Activity Activity: as per physical therapy Diet: advance to your usual diet
--- NOTE | 2018-02-22 10:11 | Physician Discharge Referral ---
Home Health/Hosp Referral Info Transfer to: Home Health Attending Provider: Axel Provider in Charge Post Discharge: PCP (JAZ) - Diagnosis (1) Mitral chordae rupture Priority: Primary Status: Acute (2) Atrial fibrillation with rapid ventricular response Priority: Secondary Status: Acute (3) CLL (chronic lymphocytic leukemia) Priority: Secondary Status: Chronic (4) Edema Priority: Secondary Status: Acute (5) Hyperthyroidism Priority: Secondary Status: Acute (6) Diastolic heart failure Priority: Secondary Status: Chronic (7) Anemia Priority: Secondary Status: Acute (8) Thrombocytopenia Priority: Secondary Status: Chronic (9) CKD (chronic kidney disease) stage 3, GFR 30-59 ml/min Priority: Secondary Status: Chronic - Respiratory Orders Smoking Cessation: Smoking cessation has been advised. For more information, call the [employer] Tobacco Quit Line at 1-140-EYKB-NOW. - Diet/Nutrition Diet/Nutrition Orders: Cardiac - Activity Activity Orders: Ambulate - Services Needed Following services are medically necessary services: Nursing, Home Health Aide, Physical Therapy, Occupational Therapy - Transfer Medications Prescriptions: Ascorbic Acid [Vitamin C] 500 mg PO DAILY #30 tablet Bumetanide [Bumex] 0.5 mg PO Q48H #15 tablet Ferrous Sulfate [Iron] 325 mg PO DAILY #30 tablet Isosorbide MONOnitrate (24 HR) [Imdur] 60 mg PO DAILY #30 tab.er.24h Home Medications: Allopurinol [Zyloprim 100 MG] 100 mg PO DAILY 07/23/16 [History] Calcium Carbonate [Calcium] 500 mg PO BID 07/23/16 [History] Diltiazem CD (24hr) [Cardizem CD] 120 mg PO DAILY #30 cap.er.24h 11/19/17 [Rx] Metoprolol XL (24 HR) Succ [Toprol Xl] 25 mg PO DAILY #30 tab.er.24h 11/19/17 [Rx] Apixaban [Eliquis] 2.5 mg PO BID 02/15/18 [History] Ascorbic Acid [Vitamin C] 500 mg PO DAILY #30 tablet 02/22/18 [Rx] Bumetanide [Bumex] 0.5 mg PO Q48H #15 tablet 02/22/18 [Rx] Ferrous Sulfate [Iron] 325 mg PO DAILY #30 tablet 02/22/18 [Rx] Isosorbide MONOnitrate (24 HR) [Imdur] 60 mg PO DAILY #30 tab.er.24h 02/22/18 [Rx] Pantoprazole Sodium [Protonix] 40 mg PO DAILY PRN #0 02/22/18 [Rx] Allergies/Adverse Reactions: Allergy/AdvReac Type Severity Reaction Status Date / Time No Known Allergies Allergy Verified 01/29/18 12:09 Certification: Further, I certify that my clinical findings support that this patient is homebound (i.e. absences from home require considerable and taxing effort and are for medical reasons or cheondoism services or infrequently or short duration when for other reasons) because: Homebound Reason: Leaving home requires considerable and taxing effort due to condition (Dyspnea on exertion) Attestation: My signature below is to certify that this patient is under my care and that I, or nurse practitioner, or a physician's clinical trial assistant working with me, has a [id number] encounter with this patient.
== END 2018-02-22 11:38 | disposition home health service (06) | DRG 307 ==
LOC: INPPIK 18:52
PROVIDERS: ADMIT Internal Medicine; ATTEND Internal Medicine

== ENCOUNTER 2019-02-13 09:41 | Inpatient (IN) ==
[2019-02-13 10:22] LABS: Hemoglobin 12.9 g/dL (12.9-16.9); Mean Corpuscular HGB Conc 33.1 g/dL (31.6-35.5); Mean Corpuscular Volume 99.7 fL (83.0-100.0); Mean Platelet Volume 13.5 fL (9.4-12.4); Red Blood Count 3.91 M/mcL (4.19-5.50); Red Cell Distribution Width 16.5 % (11.5-14.5); White Blood Count 24.3 K/mcL (4.3-11.1)
[2019-02-13 10:23] LABS: Platelet Count 63 K/mcL (140-400)
[2019-02-13 10:26] LABS: Troponin I 0.04 ng/mL (< 0.04)
[2019-02-13 10:26] LABS: ABG Base Excess -2 mEq/L (-2 to 3); ABG HCO3 21 mEq/L (21-27); ABG Oxygen Saturation 98 % (95-98); ABG PCO2 30 mmHg (35-45); ABG PH 7.46 pH Units (7.32-7.45); ABG PO2 98 mmHg (85-104); ABG TCO2 22 mEq/L (20-26)
[2019-02-13] MEDS ORDERED: Bumetanide 1 MG/4 ML VIAL IVP ONE (10:31)
[2019-02-13 10:33] LABS: Prothrombin Time 45.9 Seconds (9.4-12.1)
[2019-02-13 10:38] LABS: Albumin 4.2 g/dL (3.5-5.7); Albumin/Globulin Ratio 1.7 (1.1-2.2); Bilirubin,Total 3.9 mg/dL (0.3-1.0); Calcium 9.7 mg/dL (8.6-10.3); Globulin 2.5 g/dL (2.4-3.5); Potassium 4.4 mEq/L (3.5-5.1); Total Protein 6.7 g/dL (6.4-8.9)
[2019-02-13 10:39] LABS: Thyroid Stimulating Hormone 0.031 mcIU/mL (0.340-5.600)
[2019-02-13 10:49] LABS: Neutrophils # 4.4 K/mcL (1.6-8.9)
[2019-02-13 10:50] LABS: Anisocytosis 1+ (Not Present); Monocytes # 1.5 K/mcL (0.0-1.3); Plasma Cells Present (Not Present); Platelet Estimate Decreased (Normal); Reactive Lymphocytes Present (Not Present)
[2019-02-13] MEDS ORDERED: Isovue-370 500 ML BOTTLE IVP ONE (11:16)
[2019-02-13 11:30] LABS: Bilirubin,Urine Negative (Negative); Blood,Urine Moderate (Negative); Clarity,Urine Clear (Clear); Color,Urine Yellow (Yellow); Glucose,Urine (UA) Normal (Normal); Ketones,Urine Negative (Negative); Leukocyte Esterase,Urine Negative (Negative); Nitrite,Urine Negative (Negative); PH,Urine 5.5 pH Units (5.0-8.0); Protein,Urine 100 mg/dL (Neg-Trace); Urobilinogen,Urine Normal (Normal)
[2019-02-13 11:41] LABS: Bacteria,Urine Few per hpf (None-Few); Hyaline Casts,Urine Few per lpf (None-Few); Squamous Epithelial Cell,Urine Few per lpf (None-Few); WBC,Urine 0-3 per hpf (0-3)
[2019-02-13] MEDS ORDERED: Azithromycin 500 MG in D5% in Water 250 ML IVPB ONE (12:23)
[2019-02-13] MEDS ORDERED: Naloxone 0.4 MG/ML INJ IVP PRN (13:35)
[2019-02-13] MEDS ORDERED: Artificial Tears SOLN 15 ML BOTTLE BOTH EYES PRN (13:35)
[2019-02-13] MEDS ORDERED: 0.9 % Sodium Chloride 1,000 ML IVC SCH (13:35)
[2019-02-13] MEDS: *HR* Digoxin 0.125 MG TABLET PO SCH (17:51)
[2019-02-13] MEDS: Lactobacillus 1 EACH CAP.SPRINK PO SCH (20:16)
[2019-02-13] MEDS ORDERED: amLODIPine 5 MG TABLET PO ONE (23:44)
[2019-02-14] MEDS ORDERED: ALPRAZolam 0.5 MG TABLET PO ONE (05:39)
[2019-02-14] MEDS: Ascorbic Acid 500 MG TABLET PO SCH (05:54)
[2019-02-14 07:26] LABS: Hematocrit 34.8 % (37.5-50.1); Hemoglobin 11.6 g/dL (12.9-16.9); Mean Corpuscular HGB Conc 33.3 g/dL (31.6-35.5); Mean Corpuscular Volume 99.1 fL (83.0-100.0); Red Blood Count 3.51 M/mcL (4.19-5.50); White Blood Count 22.2 K/mcL (4.3-11.1)
[2019-02-14 07:29] LABS: Platelet Count 58 K/mcL (140-400)
[2019-02-14 07:31] LABS: INR 3.5; Prothrombin Time 39.9 Seconds (9.4-12.1)
[2019-02-14 08:33] LABS: Lymphocytes # 15.5 K/mcL (0.6-4.6); Monocytes # 1.3 K/mcL (0.0-1.3)
[2019-02-14 08:35] LABS: Anisocytosis 1+ (Not Present); Plasma Cells Present (Not Present); Platelet Estimate Decreased (Normal); Reactive Lymphocytes Present (Not Present)
[2019-02-14] MEDS ORDERED: Metoprolol XL (24 HR) Succ 50 MG TAB.ER.24H PO SCH (09:00)
[2019-02-14] MEDS: Azithromycin 250 MG TABLET PO SCH (10:09)
[2019-02-14] MEDS: Cholecalciferol (D-3) 1,000 UNIT (25MCG) TABLET PO SCH (10:09)
[2019-02-14] MEDS: Isosorbide MONOnitrate (24 HR) 60 MG TAB.ER.24H PO SCH (10:10)
[2019-02-14] MEDS: amLODIPine 5 MG TABLET PO SCH (10:11)
[2019-02-14] MEDS: Lactobacillus 1 EACH CAP.SPRINK PO SCH ×2 (10:12→20:23)
[2019-02-14] MEDS: Furosemide 20 MG TABLET PO SCH (10:12)
[2019-02-14] MEDS: SAW PALMETTO PO SCH (10:12)
[2019-02-14] MEDS: *HR* Digoxin 0.125 MG TABLET PO SCH (10:12)
[2019-02-14] MEDS: cefTRIAXone 1,000 MG in Water for inj. (sterile) 10 ML IVP SCH (10:13)
[2019-02-14] MEDS ORDERED: Metoprolol XL (24 HR) Succ 50 MG TAB.ER.24H PO ONE (14:45)
[2019-02-14] MEDS ORDERED: *HR* Warfarin 2.5 MG TABLET PO SCH (18:00)
[2019-02-14] MEDS: ALPRAZolam 0.5 MG TABLET PO PRN (18:54)
[2019-02-14] MEDS ORDERED: Acetaminophen 325 MG TABLET PO PRN (20:02)
[2019-02-14] MEDS ORDERED: amLODIPine 5 MG TABLET PO ONE (23:44)
[2019-02-15] MEDS: Ascorbic Acid 500 MG TABLET PO SCH (05:28)
[2019-02-15 07:11] LABS: Hematocrit 30.6 % (37.5-50.1); Hemoglobin 10.3 g/dL (12.9-16.9); Mean Corpuscular HGB Conc 33.7 g/dL (31.6-35.5); Mean Corpuscular Hemoglobin 33.1 pg (28.0-33.3); Mean Corpuscular Volume 98.4 fL (83.0-100.0); Mean Platelet Volume 12.7 fL (9.4-12.4); Red Blood Count 3.11 M/mcL (4.19-5.50); Red Cell Distribution Width 15.9 % (11.5-14.5); White Blood Count 27.3 K/mcL (4.3-11.1)
[2019-02-15 07:14] LABS: Platelet Count 52 K/mcL (140-400)
[2019-02-15 07:25] LABS: Calcium 8.4 mg/dL (8.6-10.3)
[2019-02-15 07:35] LABS: INR 3.4; Prothrombin Time 39.1 Seconds (9.4-12.1)
[2019-02-15 08:34] LABS: Lymphocytes # 22.9 K/mcL (0.6-4.6); Neutrophils # 4.4 K/mcL (1.6-8.9); Platelet Estimate Decreased (Normal); Reactive Lymphocytes Present (Not Present)
[2019-02-15] MEDS: Lactobacillus 1 EACH CAP.SPRINK PO SCH ×2 (09:00→21:28)
[2019-02-15] MEDS: Cholecalciferol (D-3) 1,000 UNIT (25MCG) TABLET PO SCH (09:00)
[2019-02-15] MEDS: Azithromycin 250 MG TABLET PO SCH (09:00)
[2019-02-15] MEDS: Isosorbide MONOnitrate (24 HR) 60 MG TAB.ER.24H PO SCH (09:00)
[2019-02-15] MEDS: Metoprolol XL (24 HR) Succ 50 MG TAB.ER.24H PO SCH (09:00)
[2019-02-15] MEDS: amLODIPine 5 MG TABLET PO SCH (09:01)
[2019-02-15] MEDS: SAW PALMETTO PO SCH (09:01)
[2019-02-15] MEDS: *HR* Digoxin 0.125 MG TABLET PO SCH (09:01)
[2019-02-15] MEDS: Furosemide 20 MG TABLET PO SCH (09:01)
[2019-02-15] MEDS: cefTRIAXone 1,000 MG in Water for inj. (sterile) 10 ML IVP SCH (09:02)
[2019-02-15] MEDS: ALPRAZolam 0.5 MG TABLET PO PRN (21:29)
[2019-02-16] MEDS: ALPRAZolam 0.5 MG TABLET PO PRN (01:05)
[2019-02-16] MEDS: Ascorbic Acid 500 MG TABLET PO SCH (06:54)
[2019-02-16] MEDS: cefTRIAXone 1,000 MG in Water for inj. (sterile) 10 ML IVP SCH (09:48)
[2019-02-16] MEDS: amLODIPine 5 MG TABLET PO SCH (09:54)
[2019-02-16] MEDS: SAW PALMETTO PO SCH (09:54)
[2019-02-16] MEDS: Lactobacillus 1 EACH CAP.SPRINK PO SCH (09:54)
[2019-02-16] MEDS: Isosorbide MONOnitrate (24 HR) 60 MG TAB.ER.24H PO SCH (09:54)
[2019-02-16] MEDS: Furosemide 20 MG TABLET PO SCH (09:54)
[2019-02-16] MEDS: Metoprolol XL (24 HR) Succ 50 MG TAB.ER.24H PO SCH (09:54)
[2019-02-16] MEDS: *HR* Digoxin 0.125 MG TABLET PO SCH (09:54)
[2019-02-16] MEDS: Azithromycin 250 MG TABLET PO SCH (09:55)
[2019-02-16] MEDS: Cholecalciferol (D-3) 1,000 UNIT (25MCG) TABLET PO SCH (09:55)
[2019-02-16 14:23] VITALS: BP 152/95
== END 2019-02-16 18:17 | DRG 194 ==
LOC: EMEROOPIK 09:41 → INPPIK 09:41
PROVIDERS: ADMIT Internal Medicine; ATTEND Internal Medicine

== ENCOUNTER 2020-03-18 16:48 | Inpatient (IN) ==
[2020-03-18 17:27] LABS: Basophils # 0.1 K/mcL (0.0-0.2); Basophils % 0.2 %; Eosinophils # 0.1 K/mcL (0.0-0.6); Eosinophils % 0.2 %; Hematocrit 32.6 % (37.5-50.1); Hemoglobin 10.4 g/dL (12.9-16.9); Immature Granulocytes % 0.2 % (0-4); Lymphocytes # 33.7 K/mcL (0.6-4.6); Lymphocytes % 87.2 %; Mean Corpuscular HGB Conc 31.9 g/dL (31.6-35.5); Mean Corpuscular Hemoglobin 31.7 pg (28.0-33.3); Mean Corpuscular Volume 99.4 fL (83.0-100.0); Mean Platelet Volume 12.8 fL (9.4-12.4); Monocytes # 0.2 K/mcL (0.0-1.3); Monocytes % 0.5 %; Nucleated Red Blood Cells 0.1 /100 WBC (0); Platelet Count 120 K/mcL (140-400); Red Blood Count 3.28 M/mcL (4.19-5.50); Red Cell Distribution Width 17.4 % (11.5-14.5); Segmented Neutrophils % 11.7 %
[2020-03-18 17:28] LABS: Neutrophils # 4.5 K/mcL (1.6-8.9); White Blood Count 38.6 K/mcL (4.3-11.1)
[2020-03-18 17:40] LABS: Albumin 3.5 g/dL (3.5-5.7); Albumin/Globulin Ratio 1.2 (1.1-2.2); Bilirubin,Direct 0.8 mg/dL (0.0-0.2); Bilirubin,Indirect 1.4 mg/dL (0.0-1.0); Bilirubin,Total 2.2 mg/dL (0.3-1.0); Calcium 8.6 mg/dL (8.6-10.3); Globulin 2.9 g/dL (2.4-3.5); Potassium 4.2 mEq/L (3.5-5.1); Total Protein 6.4 g/dL (6.4-8.9); Troponin I 0.03 ng/mL (< 0.04)
[2020-03-18 17:42] LABS: Activated Partial Thrombo Time 34.8 Seconds (26.0-36.0); INR 3.3; Prothrombin Time 37.3 Seconds (9.4-12.1)
[2020-03-18 17:49] LABS: Anisocytosis 1+ (Not Present); Platelet Estimate Normal (Normal); Reactive Lymphocytes Present (Not Present); Toxic Granulation Present (Not Present)
[2020-03-18] MEDS ORDERED: Furosemide 40 MG/4 ML VIAL IVP ONE (18:24)
[2020-03-18] MEDS ORDERED: Naloxone 0.4 MG/ML INJ IVP PRN (18:34)
[2020-03-18] MEDS ORDERED: Acetaminophen 325 MG TABLET PO PRN (18:34)
[2020-03-18] MEDS ORDERED: Ondansetron 4 MG/2 ML VIAL IVP PRN (18:34)
[2020-03-18] MEDS: Furosemide 20 MG/2 ML VIAL IVP SCH (22:21)
[2020-03-19 00:49] LABS: Bilirubin,Urine Negative (Negative); Blood,Urine Negative (Negative); Clarity,Urine Clear (Clear); Color,Urine Straw (Yellow); Glucose,Urine (UA) Normal (Normal); Ketones,Urine Negative (Negative); Leukocyte Esterase,Urine Negative (Negative); Nitrite,Urine Negative (Negative); Protein,Urine Negative (Neg-Trace); Specific Gravity,Urine 1.015 (1.010-1.025); Urobilinogen,Urine Normal (Normal)
[2020-03-19] MEDS ORDERED: *HR* Metoprolol 5 MG/5 ML VIAL IVP PRN (02:52)
[2020-03-19 05:40] LABS: Hematocrit 34.5 % (37.5-50.1); Mean Corpuscular HGB Conc 31.9 g/dL (31.6-35.5); Mean Corpuscular Hemoglobin 31.6 pg (28.0-33.3); Mean Corpuscular Volume 99.1 fL (83.0-100.0); Mean Platelet Volume 11.9 fL (9.4-12.4); Platelet Count 107 K/mcL (140-400); Red Blood Count 3.48 M/mcL (4.19-5.50); Red Cell Distribution Width 17.3 % (11.5-14.5)
[2020-03-19 05:49] LABS: White Blood Count 34.8 K/mcL (4.3-11.1)
[2020-03-19 05:56] LABS: Calcium 8.7 mg/dL (8.6-10.3); Magnesium 1.9 mg/dL (1.6-2.6); Potassium 3.8 mEq/L (3.5-5.1)
[2020-03-19] MEDS: amLODIPine 5 MG TABLET PO SCH (07:49)
[2020-03-19] MEDS: Furosemide 20 MG/2 ML VIAL IVP SCH ×3 (07:49→16:19)
[2020-03-19] MEDS: allopurinoL 100 MG TABLET PO SCH (07:49)
[2020-03-19] MEDS: Isosorbide MONOnitrate (24 HR) 60 MG TAB.ER.24H PO SCH (07:49)
[2020-03-19] MEDS: Metoprolol XL (24 HR) Succ 50 MG TAB.ER.24H PO SCH (07:49)
[2020-03-19] MEDS ORDERED: Warfarin perPT PO PRN (11:20)
[2020-03-19] MEDS ORDERED: *HR* Warfarin 2 MG TABLET PO SCH (18:00)
[2020-03-19] MEDS ORDERED: Perflutren Lipid Microsphere 1.3 ML in 0.9 % Sodium Chloride 8.7 ML IVP PRN (18:35)
[2020-03-19] MEDS: Piperacillin/Tazobactam 3.375 GM in 0.9 % Sodium Chloride Mini Bag 100 ML IVPB SCH (19:38)
[2020-03-20] MEDS ORDERED: *HR* HYDROcodone/Acet 5/325 mg TABLET PO ONE (02:10)
[2020-03-20] MEDS: Piperacillin/Tazobactam 3.375 GM in 0.9 % Sodium Chloride Mini Bag 100 ML IVPB SCH ×2 (02:20→17:11)
[2020-03-20] MEDS: Metoprolol XL (24 HR) Succ 50 MG TAB.ER.24H PO SCH (07:54)
[2020-03-20] MEDS: amLODIPine 5 MG TABLET PO SCH (07:54)
[2020-03-20] MEDS: Isosorbide MONOnitrate (24 HR) 60 MG TAB.ER.24H PO SCH (07:54)
[2020-03-20] MEDS: allopurinoL 100 MG TABLET PO SCH (07:54)
[2020-03-20 08:42] LABS: Basophils # 0.1 K/mcL (0.0-0.2); Basophils % 0.2 %; Eosinophils # 0.1 K/mcL (0.0-0.6); Eosinophils % 0.2 %; Hematocrit 33.6 % (37.5-50.1); Hemoglobin 10.6 g/dL (12.9-16.9); Immature Granulocytes % 0.1 % (0-4); Lymphocytes # 29.9 K/mcL (0.6-4.6); Lymphocytes % 87.8 %; Mean Corpuscular HGB Conc 31.5 g/dL (31.6-35.5); Mean Corpuscular Hemoglobin 31.3 pg (28.0-33.3); Mean Corpuscular Volume 99.1 fL (83.0-100.0); Mean Platelet Volume 11.8 fL (9.4-12.4); Monocytes # 0.3 K/mcL (0.0-1.3); Red Blood Count 3.39 M/mcL (4.19-5.50); Red Cell Distribution Width 17.4 % (11.5-14.5); Segmented Neutrophils % 10.7 %
[2020-03-20 08:53] LABS: INR 3.4; Prothrombin Time 37.9 Seconds (9.4-12.1)
[2020-03-20 09:09] LABS: Calcium 8.4 mg/dL (8.6-10.3); Potassium 3.9 mEq/L (3.5-5.1)
[2020-03-20 09:45] LABS: Neutrophils # 3.7 K/mcL (1.6-8.9); Platelet Count 91 K/mcL (140-400); White Blood Count 34.1 K/mcL (4.3-11.1)
[2020-03-20 09:50] LABS: Platelet Estimate Decreased (Normal)
[2020-03-20] MEDS ORDERED: Haloperidol Lactate 5 MG/ML VIAL IVP PRN (23:30)
[2020-03-21] MEDS: Piperacillin/Tazobactam 3.375 GM in 0.9 % Sodium Chloride Mini Bag 100 ML IVPB SCH ×2 (05:47→18:01)
[2020-03-21 07:46] LABS: Basophils # 0.1 K/mcL (0.0-0.2); Basophils % 0.2 %; Eosinophils # 0.1 K/mcL (0.0-0.6); Eosinophils % 0.3 %; Hematocrit 30.6 % (37.5-50.1); Hemoglobin 9.7 g/dL (12.9-16.9); Immature Granulocytes % 0.1 % (0-4); Lymphocytes # 26.8 K/mcL (0.6-4.6); Lymphocytes % 87.4 %; Mean Corpuscular HGB Conc 31.7 g/dL (31.6-35.5); Mean Corpuscular Hemoglobin 31.6 pg (28.0-33.3); Mean Corpuscular Volume 99.7 fL (83.0-100.0); Monocytes # 0.2 K/mcL (0.0-1.3); Monocytes % 0.6 %; Neutrophils # 3.5 K/mcL (1.6-8.9); Red Blood Count 3.07 M/mcL (4.19-5.50); Red Cell Distribution Width 17.3 % (11.5-14.5); Segmented Neutrophils % 11.4 %
[2020-03-21 07:52] LABS: INR 3.1; Prothrombin Time 34.6 Seconds (9.4-12.1)
[2020-03-21 07:56] LABS: Calcium 8.1 mg/dL (8.6-10.3); Potassium 4.1 mEq/L (3.5-5.1)
[2020-03-21 08:02] LABS: Platelet Count 93 K/mcL (140-400); White Blood Count 30.7 K/mcL (4.3-11.1)
[2020-03-21] MEDS ORDERED: Furosemide 20 MG TABLET PO SCH (09:00)
[2020-03-21] MEDS: allopurinoL 100 MG TABLET PO SCH (09:36)
[2020-03-21] MEDS: amLODIPine 5 MG TABLET PO SCH (09:36)
[2020-03-21] MEDS: Isosorbide MONOnitrate (24 HR) 60 MG TAB.ER.24H PO SCH (09:37)
[2020-03-21] MEDS: Metoprolol XL (24 HR) Succ 50 MG TAB.ER.24H PO SCH (09:37)
[2020-03-21 09:43] LABS: Platelet Estimate Decreased (Normal)
[2020-03-21] MEDS ORDERED: Metoprolol XL (24 HR) Succ 25 MG TAB.ER.24H PO ONE (09:45)
[2020-03-21] MEDS ORDERED: 0.9 % Sodium Chloride 1,000 ML IVC SCH (10:15)
[2020-03-21] MEDS ORDERED: haloperidoL 1 MG TABLET PO PRN (13:55)
[2020-03-22] MEDS: Piperacillin/Tazobactam 3.375 GM in 0.9 % Sodium Chloride Mini Bag 100 ML IVPB SCH (05:30)
[2020-03-22 06:54] LABS: Basophils # 0.1 K/mcL (0.0-0.2); Basophils % 0.2 %; Eosinophils # 0.1 K/mcL (0.0-0.6); Eosinophils % 0.5 %; Hematocrit 30.8 % (37.5-50.1); Hemoglobin 9.4 g/dL (12.9-16.9); Immature Granulocytes % 0.1 % (0-4); Lymphocytes % 87.1 %; Mean Corpuscular HGB Conc 30.5 g/dL (31.6-35.5); Mean Corpuscular Hemoglobin 31.1 pg (28.0-33.3); Mean Platelet Volume 12.7 fL (9.4-12.4); Monocytes # 0.2 K/mcL (0.0-1.3); Monocytes % 0.6 %; Red Blood Count 3.02 M/mcL (4.19-5.50); Red Cell Distribution Width 17.4 % (11.5-14.5); Segmented Neutrophils % 11.5 %; White Blood Count 26.4 K/mcL (4.3-11.1)
[2020-03-22 07:12] LABS: INR 2.4; Prothrombin Time 27.1 Seconds (9.4-12.1)
[2020-03-22 07:15] LABS: Platelet Count 89 K/mcL (140-400)
[2020-03-22 07:30] LABS: Calcium 7.9 mg/dL (8.6-10.3); Potassium 4.1 mEq/L (3.5-5.1)
[2020-03-22] MEDS: Isosorbide MONOnitrate (24 HR) 60 MG TAB.ER.24H PO SCH (08:07)
[2020-03-22] MEDS: allopurinoL 100 MG TABLET PO SCH (08:08)
[2020-03-22 08:26] LABS: Platelet Estimate Decreased (Normal)
[2020-03-22] MEDS ORDERED: Metoprolol XL (24 HR) Succ 25 MG TAB.ER.24H PO SCH (09:00)
[2020-03-22 13:39] VITALS: BP 107/77
[2020-03-22] MEDS ORDERED: Ampicillin 2 GM in 0.9 % Sodium Chloride Mini Bag 100 ML IVPB SCH (14:00)
[2020-03-22] MEDS ORDERED: *HR* Warfarin 1 MG TABLET PO ONE (18:00)
== END 2020-03-22 16:24 | disposition other institution (70) | DRG 291 ==
LOC: INPPIK 16:48 → EMEROOPIK 16:48 → INPPIK 19:52
PROVIDERS: ADMIT Family Medicine; ATTEND Family Medicine

== ENCOUNTER 2020-03-21 14:53 | Inpatient (IN) ==
[2020-03-22] MEDS ORDERED: haloperidoL 1 MG TABLET PO PRN (15:43)
[2020-03-22] MEDS ORDERED: [UNRECOGNIZED DRUG - OTHER] OP SCH (17:00)
[2020-03-22] MEDS ORDERED: POVIDONE OP SCH (17:00)
[2020-03-22] MEDS ORDERED: POLYVINYL ALCOHOL OP SCH (17:00)
[2020-03-22] MEDS ORDERED: Warfarin perPT PO PRN (17:06)
[2020-03-22] MEDS ORDERED: Ampicillin 2 GM VIAL IVPB SCH (18:00)
[2020-03-22] MEDS ORDERED: *HR* Warfarin 1 MG TABLET PO ONE (18:00)
[2020-03-22] MEDS ORDERED: *HR* Warfarin 1 MG TABLET PO SCH (18:00)
[2020-03-22] MEDS: Ampicillin 2 GM in 0.9 % Sodium Chloride Mini Bag 100 ML IVPB SCH (19:37)
[2020-03-22] MEDS: FLECAINIDE ACETATE 25 MG PO SCH (19:48)
[2020-03-23] MEDS: Ampicillin 2 GM in 0.9 % Sodium Chloride Mini Bag 100 ML IVPB SCH ×4 (01:12→22:20)
[2020-03-23 08:02] LABS: INR 2.1; Prothrombin Time 23.8 Seconds (9.4-12.1)
[2020-03-23] MEDS: allopurinoL 100 MG TABLET PO SCH (08:19)
[2020-03-23] MEDS: Metoprolol XL (24 HR) Succ 25 MG TAB.ER.24H PO SCH (08:19)
[2020-03-23] MEDS: FLECAINIDE ACETATE 25 MG PO SCH ×2 (08:20→19:40)
[2020-03-23] MEDS: Isosorbide MONOnitrate (24 HR) 60 MG TAB.ER.24H PO SCH (08:20)
[2020-03-23 08:30] LABS: Basophils # 0.1 K/mcL (0.0-0.2); Basophils % 0.2 %; Eosinophils # 0.1 K/mcL (0.0-0.6); Eosinophils % 0.4 %; Hematocrit 32.7 % (37.5-50.1); Hemoglobin 10.1 g/dL (12.9-16.9); Immature Granulocytes % 0.1 % (0-4); Lymphocytes # 21.3 K/mcL (0.6-4.6); Lymphocytes % 85.6 %; Mean Corpuscular HGB Conc 30.9 g/dL (31.6-35.5); Mean Corpuscular Hemoglobin 31.5 pg (28.0-33.3); Mean Corpuscular Volume 101.9 fL (83.0-100.0); Mean Platelet Volume 12.4 fL (9.4-12.4); Monocytes # 0.2 K/mcL (0.0-1.3); Monocytes % 0.6 %; Platelet Count 100 K/mcL (140-400); Red Blood Count 3.21 M/mcL (4.19-5.50); Red Cell Distribution Width 17.4 % (11.5-14.5); Segmented Neutrophils % 13.1 %; White Blood Count 24.9 K/mcL (4.3-11.1)
[2020-03-23 08:32] LABS: Neutrophils # 3.3 K/mcL (1.6-8.9)
[2020-03-23 08:50] LABS: Calcium 8.4 mg/dL (8.6-10.3); Potassium 4.6 mEq/L (3.5-5.1)
[2020-03-23] MEDS ORDERED: ZINC PICOLIN PO SCH (09:00)
[2020-03-23] MEDS ORDERED: SAW PALMETTO XTR PO SCH (09:00)
[2020-03-23] MEDS ORDERED: [UNRECOGNIZED DRUG - OTHER] PO SCH (09:00)
[2020-03-23 09:02] LABS: Platelet Estimate Decreased (Normal)
[2020-03-23] MEDS ORDERED: *HR* Warfarin 1 MG TABLET PO ONE (18:00)
[2020-03-24] MEDS: Ampicillin 2 GM in 0.9 % Sodium Chloride Mini Bag 100 ML IVPB SCH ×3 (05:39→21:27)
[2020-03-24] MEDS: FLECAINIDE ACETATE 25 MG PO SCH ×2 (07:41→21:27)
[2020-03-24] MEDS: Metoprolol XL (24 HR) Succ 25 MG TAB.ER.24H PO SCH (07:45)
[2020-03-24] MEDS: allopurinoL 100 MG TABLET PO SCH (07:45)
[2020-03-24] MEDS: Isosorbide MONOnitrate (24 HR) 60 MG TAB.ER.24H PO SCH (07:45)
[2020-03-24 07:53] LABS: INR 1.9; Prothrombin Time 21.3 Seconds (9.4-12.1)
[2020-03-24] MEDS ORDERED: *HR* Warfarin 2 MG TABLET PO ONE (18:00)
[2020-03-25] MEDS: Ampicillin 2 GM in 0.9 % Sodium Chloride Mini Bag 100 ML IVPB SCH ×3 (06:00→21:05)
[2020-03-25] MEDS ORDERED: Ipratropium/Albuterol Neb 3 ML IH PRN (06:16)
[2020-03-25 06:53] LABS: INR 1.6
[2020-03-25] MEDS ORDERED: Furosemide 20 MG/2 ML VIAL IVP ONE (07:52)
[2020-03-25 08:33] LABS: Basophils % 0.2 %; Eosinophils # 0.1 K/mcL (0.0-0.6); Eosinophils % 0.5 %; Hematocrit 31.4 % (37.5-50.1); Hemoglobin 9.6 g/dL (12.9-16.9); Immature Granulocytes % 0.1 % (0-4); Lymphocytes # 17.4 K/mcL (0.6-4.6); Mean Corpuscular HGB Conc 30.6 g/dL (31.6-35.5); Mean Corpuscular Hemoglobin 31.4 pg (28.0-33.3); Mean Corpuscular Volume 102.6 fL (83.0-100.0); Mean Platelet Volume 11.5 fL (9.4-12.4); Monocytes # 0.7 K/mcL (0.0-1.3); Monocytes % 3.4 %; Neutrophils # 3.4 K/mcL (1.6-8.9); Platelet Count 86 K/mcL (140-400); Red Blood Count 3.06 M/mcL (4.19-5.50); Red Cell Distribution Width 17.5 % (11.5-14.5); Segmented Neutrophils % 15.8 %; White Blood Count 21.7 K/mcL (4.3-11.1)
[2020-03-25] MEDS: Isosorbide MONOnitrate (24 HR) 60 MG TAB.ER.24H PO SCH (08:44)
[2020-03-25] MEDS: Metoprolol XL (24 HR) Succ 25 MG TAB.ER.24H PO SCH (08:44)
[2020-03-25] MEDS: allopurinoL 100 MG TABLET PO SCH (08:44)
[2020-03-25] MEDS: FLECAINIDE ACETATE 25 MG PO SCH ×2 (08:46→21:05)
[2020-03-25 08:52] LABS: Calcium 8.8 mg/dL (8.6-10.3); Potassium 4.8 mEq/L (3.5-5.1)
[2020-03-25 08:58] LABS: Anisocytosis 1+ (Not Present); Platelet Estimate Slight Decrease (Normal); Reactive Lymphocytes Present (Not Present); Toxic Granulation Present (Not Present)
[2020-03-25] MEDS ORDERED: Perflutren Lipid Microsphere 1.3 ML in 0.9 % Sodium Chloride 8.7 ML IVP PRN (09:09)
[2020-03-25] MEDS ORDERED: *HR* Warfarin 3 MG TABLET PO ONE (18:00)
[2020-03-25] MEDS ORDERED: Furosemide 20 MG/2 ML VIAL IVP SCH (21:00)
[2020-03-25 21:27] LABS: Adenovirus Not Detected (Not Detect); Bordetella Pertussis Not Detected (Not Detect); Chlamydophila pneumoniae Not Detected (Not Detect); Coronavirus 229E Not Detected (Not Detect); Coronavirus HKU1 Not Detected (Not Detect); Coronavirus NL63 Not Detected (Not Detect); Coronavirus OC43 Not Detected (Not Detect); Human Metapneumovirus Not Detected (Not Detect); Human Rhinovirus/Enterovirus Not Detected (Not Detect); Influenza A Subtype 2009 H1 Not Detected (Not Detect); Influenza B Not Detected (Not Detect); Mycoplasma pneumoniae Not Detected (Not Detect); Parainfluenza Virus 1 Not Detected (Not Detect); Parainfluenza Virus 2 Not Detected (Not Detect); Parainfluenza Virus 3 Not Detected (Not Detect); Parainfluenza Virus 4 Not Detected (Not Detect); Respiratory Syncytial Virus Not Detected (Not Detect); SARS-CoV-2 Not Detected (Not Detect)
[2020-03-26] MEDS: Ampicillin 2 GM in 0.9 % Sodium Chloride Mini Bag 100 ML IVPB SCH ×3 (05:31→19:38)
[2020-03-26 06:01] LABS: INR 1.6; Prothrombin Time 17.8 Seconds (9.4-12.1)
[2020-03-26] MEDS: Isosorbide MONOnitrate (24 HR) 60 MG TAB.ER.24H PO SCH (07:59)
[2020-03-26] MEDS: allopurinoL 100 MG TABLET PO SCH (07:59)
[2020-03-26] MEDS: FLECAINIDE ACETATE 25 MG PO SCH ×2 (07:59→19:40)
[2020-03-26] MEDS: Furosemide 20 MG/2 ML VIAL IVP SCH ×2 (07:59→16:59)
[2020-03-26] MEDS: Metoprolol XL (24 HR) Succ 25 MG TAB.ER.24H PO SCH (07:59)
[2020-03-26] MEDS ORDERED: *HR* Warfarin 2 MG TABLET PO ONE (18:00)
[2020-03-27 04:53] LABS: Basophils % 0.2 %; Eosinophils # 0.1 K/mcL (0.0-0.6); Eosinophils % 0.5 %; Hematocrit 28.1 % (37.5-50.1); Hemoglobin 8.6 g/dL (12.9-16.9); Immature Granulocytes % 0.2 % (0-4); Lymphocytes # 20.8 K/mcL (0.6-4.6); Lymphocytes % 84.2 %; Mean Corpuscular HGB Conc 30.6 g/dL (31.6-35.5); Mean Corpuscular Volume 101.4 fL (83.0-100.0); Mean Platelet Volume 12.1 fL (9.4-12.4); Monocytes # 0.2 K/mcL (0.0-1.3); Monocytes % 0.6 %; Neutrophils # 3.5 K/mcL (1.6-8.9); Red Blood Count 2.77 M/mcL (4.19-5.50); Red Cell Distribution Width 17.1 % (11.5-14.5); Segmented Neutrophils % 14.3 %; White Blood Count 24.7 K/mcL (4.3-11.1)
[2020-03-27 04:59] LABS: Basophils # 0.1 K/mcL (0.0-0.2); Platelet Count 84 K/mcL (140-400)
[2020-03-27 05:02] LABS: INR 1.7; Prothrombin Time 19.6 Seconds (9.4-12.1)
[2020-03-27 05:20] LABS: Calcium 8.7 mg/dL (8.6-10.3); Potassium 4.6 mEq/L (3.5-5.1)
[2020-03-27] MEDS: Ampicillin 2 GM in 0.9 % Sodium Chloride Mini Bag 100 ML IVPB SCH ×3 (05:38→22:31)
[2020-03-27 06:01] LABS: Smudge Cells Present (Not Present)
[2020-03-27 06:02] LABS: Platelet Estimate Decreased (Normal)
[2020-03-27] MEDS: Furosemide 20 MG/2 ML VIAL IVP SCH ×2 (08:25→17:12)
[2020-03-27] MEDS: Metoprolol XL (24 HR) Succ 25 MG TAB.ER.24H PO SCH (08:26)
[2020-03-27] MEDS: allopurinoL 100 MG TABLET PO SCH (08:26)
[2020-03-27] MEDS: Isosorbide MONOnitrate (24 HR) 60 MG TAB.ER.24H PO SCH (08:27)
[2020-03-27] MEDS: FLECAINIDE ACETATE 25 MG PO SCH ×2 (08:27→22:30)
[2020-03-27] MEDS ORDERED: *HR* Warfarin 2 MG TABLET PO ONE (18:00)
[2020-03-28] MEDS: Ampicillin 2 GM in 0.9 % Sodium Chloride Mini Bag 100 ML IVPB SCH ×3 (05:46→21:59)
[2020-03-28] MEDS: Furosemide 20 MG/2 ML VIAL IVP SCH ×2 (08:32→16:02)
[2020-03-28] MEDS: Isosorbide MONOnitrate (24 HR) 60 MG TAB.ER.24H PO SCH (08:32)
[2020-03-28] MEDS: Metoprolol XL (24 HR) Succ 25 MG TAB.ER.24H PO SCH (08:32)
[2020-03-28] MEDS: allopurinoL 100 MG TABLET PO SCH (08:32)
[2020-03-28] MEDS: FLECAINIDE ACETATE 25 MG PO SCH ×2 (08:33→21:59)
[2020-03-28] MEDS ORDERED: *HR* Warfarin 2 MG TABLET PO ONE (18:00)
[2020-03-29] MEDS: Ampicillin 2 GM in 0.9 % Sodium Chloride Mini Bag 100 ML IVPB SCH ×3 (05:23→23:14)
[2020-03-29 06:07] LABS: Basophils % 0.1 %; Eosinophils # 0.1 K/mcL (0.0-0.6); Eosinophils % 0.5 %; Hematocrit 29.4 % (37.5-50.1); Immature Granulocytes % 0.1 % (0-4); Lymphocytes # 22.9 K/mcL (0.6-4.6); Lymphocytes % 86.5 %; Mean Corpuscular HGB Conc 30.6 g/dL (31.6-35.5); Mean Corpuscular Hemoglobin 31.3 pg (28.0-33.3); Mean Corpuscular Volume 102.1 fL (83.0-100.0); Mean Platelet Volume 11.5 fL (9.4-12.4); Monocytes # 0.2 K/mcL (0.0-1.3); Monocytes % 0.6 %; Neutrophils # 3.2 K/mcL (1.6-8.9); Red Blood Count 2.88 M/mcL (4.19-5.50); Red Cell Distribution Width 17.4 % (11.5-14.5); Segmented Neutrophils % 12.2 %; White Blood Count 26.5 K/mcL (4.3-11.1)
[2020-03-29 06:15] LABS: Prothrombin Time 22.9 Seconds (9.4-12.1)
[2020-03-29 06:24] LABS: Albumin 3.3 g/dL (3.5-5.7); Albumin/Globulin Ratio 1.2 (1.1-2.2); Bilirubin,Total 0.9 mg/dL (0.3-1.0); Calcium 8.8 mg/dL (8.6-10.3); Globulin 2.7 g/dL (2.4-3.5); Potassium 4.6 mEq/L (3.5-5.1)
[2020-03-29 07:04] LABS: Platelet Count 81 K/mcL (140-400)
[2020-03-29 07:12] LABS: Platelet Estimate Decreased (Normal)
[2020-03-29] MEDS: allopurinoL 100 MG TABLET PO SCH (09:03)
[2020-03-29] MEDS: Isosorbide MONOnitrate (24 HR) 60 MG TAB.ER.24H PO SCH (09:03)
[2020-03-29] MEDS: Metoprolol XL (24 HR) Succ 25 MG TAB.ER.24H PO SCH (09:03)
[2020-03-29] MEDS: Furosemide 20 MG/2 ML VIAL IVP SCH ×2 (09:03→17:08)
[2020-03-29] MEDS: FLECAINIDE ACETATE 25 MG PO SCH ×2 (09:04→19:49)
[2020-03-29] MEDS ORDERED: *HR* Warfarin 3 MG TABLET PO ONE (18:00)
[2020-03-30] MEDS: Ampicillin 2 GM in 0.9 % Sodium Chloride Mini Bag 100 ML IVPB SCH ×3 (06:50→21:12)
[2020-03-30 07:59] LABS: INR 2.2; Prothrombin Time 24.8 Seconds (9.4-12.1)
[2020-03-30] MEDS: Isosorbide MONOnitrate (24 HR) 60 MG TAB.ER.24H PO SCH (09:26)
[2020-03-30] MEDS: allopurinoL 100 MG TABLET PO SCH (09:26)
[2020-03-30] MEDS: FLECAINIDE ACETATE 25 MG PO SCH ×2 (09:26→20:08)
[2020-03-30] MEDS: Metoprolol XL (24 HR) Succ 25 MG TAB.ER.24H PO SCH (09:26)
[2020-03-30] MEDS: Furosemide 20 MG/2 ML VIAL IVP SCH ×2 (09:26→17:11)
[2020-03-30] MEDS ORDERED: *HR* Warfarin 3 MG TABLET PO ONE (18:00)
[2020-03-31] MEDS: Ampicillin 2 GM in 0.9 % Sodium Chloride Mini Bag 100 ML IVPB SCH ×3 (05:22→20:24)
[2020-03-31 07:53] LABS: INR 2.2; Prothrombin Time 24.6 Seconds (9.4-12.1)
[2020-03-31] MEDS: Metoprolol XL (24 HR) Succ 25 MG TAB.ER.24H PO SCH (10:39)
[2020-03-31] MEDS: Furosemide 20 MG/2 ML VIAL IVP SCH ×2 (10:39→16:51)
[2020-03-31] MEDS: FLECAINIDE ACETATE 25 MG PO SCH ×2 (10:40→20:25)
[2020-03-31] MEDS: Isosorbide MONOnitrate (24 HR) 60 MG TAB.ER.24H PO SCH (10:43)
[2020-03-31] MEDS: allopurinoL 100 MG TABLET PO SCH (14:00)
[2020-03-31] MEDS ORDERED: *HR* Warfarin 3 MG TABLET PO ONE (18:00)
[2020-04-01] MEDS: Ampicillin 2 GM in 0.9 % Sodium Chloride Mini Bag 100 ML IVPB SCH ×3 (05:23→21:07)
[2020-04-01 07:45] LABS: INR 2.5; Prothrombin Time 27.9 Seconds (9.4-12.1)
[2020-04-01] MEDS: allopurinoL 100 MG TABLET PO SCH (08:04)
[2020-04-01] MEDS: Isosorbide MONOnitrate (24 HR) 60 MG TAB.ER.24H PO SCH (08:04)
[2020-04-01] MEDS: Metoprolol XL (24 HR) Succ 25 MG TAB.ER.24H PO SCH (08:04)
[2020-04-01] MEDS: Furosemide 20 MG/2 ML VIAL IVP SCH ×2 (08:04→16:59)
[2020-04-01] MEDS: FLECAINIDE ACETATE 25 MG PO SCH ×2 (08:07→19:56)
[2020-04-01] MEDS ORDERED: *HR* Warfarin 2.5 MG TABLET PO ONE (18:00)
[2020-04-02] MEDS: Ampicillin 2 GM in 0.9 % Sodium Chloride Mini Bag 100 ML IVPB SCH ×3 (05:12→21:07)
[2020-04-02 06:46] LABS: Basophils # 0.1 K/mcL (0.0-0.2); Basophils % 0.2 %; Eosinophils # 0.2 K/mcL (0.0-0.6); Eosinophils % 0.7 %; Hematocrit 29.4 % (37.5-50.1); Hemoglobin 9.2 g/dL (12.9-16.9); Immature Granulocytes % 0.2 % (0-4); Lymphocytes # 24.7 K/mcL (0.6-4.6); Lymphocytes % 86.3 %; Mean Corpuscular HGB Conc 31.3 g/dL (31.6-35.5); Mean Corpuscular Hemoglobin 31.4 pg (28.0-33.3); Mean Corpuscular Volume 100.3 fL (83.0-100.0); Mean Platelet Volume 12.6 fL (9.4-12.4); Monocytes # 0.2 K/mcL (0.0-1.3); Monocytes % 0.7 %; Neutrophils # 3.4 K/mcL (1.6-8.9); Red Blood Count 2.93 M/mcL (4.19-5.50); Red Cell Distribution Width 17.3 % (11.5-14.5); Segmented Neutrophils % 11.9 %; White Blood Count 28.6 K/mcL (4.3-11.1)
[2020-04-02 06:52] LABS: Platelet Count 76 K/mcL (140-400)
[2020-04-02 06:54] LABS: INR 2.5; Prothrombin Time 28.7 Seconds (9.4-12.1)
[2020-04-02 07:14] LABS: Albumin 3.3 g/dL (3.5-5.7); Albumin/Globulin Ratio 1.1 (1.1-2.2); Calcium 8.6 mg/dL (8.6-10.3); Globulin 2.9 g/dL (2.4-3.5); Total Protein 6.2 g/dL (6.4-8.9)
[2020-04-02] MEDS: Isosorbide MONOnitrate (24 HR) 60 MG TAB.ER.24H PO SCH (08:09)
[2020-04-02] MEDS: Furosemide 20 MG/2 ML VIAL IVP SCH ×2 (08:09→17:24)
[2020-04-02] MEDS: Metoprolol XL (24 HR) Succ 25 MG TAB.ER.24H PO SCH (08:10)
[2020-04-02] MEDS: allopurinoL 100 MG TABLET PO SCH (08:10)
[2020-04-02] MEDS: FLECAINIDE ACETATE 25 MG PO SCH ×2 (08:12→20:09)
[2020-04-02] MEDS ORDERED: *HR* Warfarin 2.5 MG TABLET PO ONE (18:00)
[2020-04-03] MEDS: Ampicillin 2 GM in 0.9 % Sodium Chloride Mini Bag 100 ML IVPB SCH ×3 (05:11→21:16)
[2020-04-03 06:33] LABS: INR 2.7; Prothrombin Time 30.3 Seconds (9.4-12.1)
[2020-04-03] MEDS: Metoprolol XL (24 HR) Succ 25 MG TAB.ER.24H PO SCH (07:46)
[2020-04-03] MEDS: Furosemide 20 MG/2 ML VIAL IVP SCH ×2 (07:47→16:23)
[2020-04-03] MEDS: Isosorbide MONOnitrate (24 HR) 60 MG TAB.ER.24H PO SCH (07:47)
[2020-04-03] MEDS: allopurinoL 100 MG TABLET PO SCH (07:47)
[2020-04-03] MEDS: FLECAINIDE ACETATE 25 MG PO SCH ×2 (07:49→20:01)
[2020-04-03] MEDS ORDERED: *HR* Warfarin 1 MG TABLET PO ONE (18:00)
[2020-04-04] MEDS: Ampicillin 2 GM in 0.9 % Sodium Chloride Mini Bag 100 ML IVPB SCH ×3 (05:41→21:52)
[2020-04-04 06:32] LABS: Hematocrit 26.7 % (37.5-50.1); Hemoglobin 8.4 g/dL (12.9-16.9); Mean Corpuscular HGB Conc 31.5 g/dL (31.6-35.5); Mean Corpuscular Hemoglobin 31.6 pg (28.0-33.3); Mean Corpuscular Volume 100.4 fL (83.0-100.0); Mean Platelet Volume 12.6 fL (9.4-12.4); Red Blood Count 2.66 M/mcL (4.19-5.50); Red Cell Distribution Width 17.3 % (11.5-14.5); White Blood Count 25.9 K/mcL (4.3-11.1)
[2020-04-04 06:35] LABS: Platelet Count 70 K/mcL (140-400)
[2020-04-04 06:46] LABS: INR 2.3; Prothrombin Time 25.7 Seconds (9.4-12.1)
[2020-04-04 06:48] LABS: Calcium 8.2 mg/dL (8.6-10.3); Potassium 4.1 mEq/L (3.5-5.1)
[2020-04-04 07:20] LABS: Eosinophils # 0.5 K/mcL (0.0-0.6); Lymphocytes # 21.2 K/mcL (0.6-4.6); Monocytes # 0.5 K/mcL (0.0-1.3); Neutrophils # 3.1 K/mcL (1.6-8.9)
[2020-04-04 07:21] LABS: Smudge Cells Present (Not Present)
[2020-04-04 07:22] LABS: Platelet Estimate Marked Decrease (Normal)
[2020-04-04] MEDS: Furosemide 20 MG/2 ML VIAL IVP SCH ×2 (07:36→15:54)
[2020-04-04] MEDS: Metoprolol XL (24 HR) Succ 25 MG TAB.ER.24H PO SCH (07:36)
[2020-04-04] MEDS: allopurinoL 100 MG TABLET PO SCH (07:36)
[2020-04-04] MEDS: Isosorbide MONOnitrate (24 HR) 60 MG TAB.ER.24H PO SCH (07:36)
[2020-04-04] MEDS: FLECAINIDE ACETATE 25 MG PO SCH ×2 (07:37→21:53)
[2020-04-04] MEDS ORDERED: *HR* Warfarin 2.5 MG TABLET PO ONE (18:00)
[2020-04-05] MEDS: Ampicillin 2 GM in 0.9 % Sodium Chloride Mini Bag 100 ML IVPB SCH ×3 (05:56→22:49)
[2020-04-05 06:15] LABS: INR 1.9; Prothrombin Time 22.1 Seconds (9.4-12.1)
[2020-04-05] MEDS: Metoprolol XL (24 HR) Succ 25 MG TAB.ER.24H PO SCH (08:37)
[2020-04-05] MEDS: Furosemide 20 MG TABLET PO SCH (08:37)
[2020-04-05] MEDS: allopurinoL 100 MG TABLET PO SCH (08:37)
[2020-04-05] MEDS: Isosorbide MONOnitrate (24 HR) 60 MG TAB.ER.24H PO SCH (08:37)
[2020-04-05] MEDS: FLECAINIDE ACETATE 25 MG PO SCH ×3 (08:38→20:03)
[2020-04-05] MEDS ORDERED: Warfarin perPT PO PRN (17:07)
[2020-04-05] MEDS ORDERED: *HR* Warfarin 2 MG TABLET PO ONE (18:00)
[2020-04-06 07:36] VITALS: BP 120/79
[2020-04-06] MEDS: Isosorbide MONOnitrate (24 HR) 60 MG TAB.ER.24H PO SCH (08:37)
[2020-04-06] MEDS: Furosemide 20 MG TABLET PO SCH (08:37)
[2020-04-06] MEDS: allopurinoL 100 MG TABLET PO SCH (08:37)
[2020-04-06] MEDS: Metoprolol XL (24 HR) Succ 25 MG TAB.ER.24H PO SCH (08:37)
[2020-04-06] MEDS: FLECAINIDE ACETATE 25 MG PO SCH (08:38)
[2020-04-06 10:39] LABS: INR 1.7
[2020-04-06 10:40] LABS: Prothrombin Time 19.9 Seconds (9.4-12.1)
== END 2020-04-06 12:20 | disposition home health service (06) | DRG 291 ==
LOC: INPPIK 03-22 16:05
PROVIDERS: ADMIT Family Medicine; ATTEND Family Medicine

== ENCOUNTER 2020-04-16 09:57 | Inpatient (IN) ==
[2020-04-16 10:39] LABS: Basophils % 0.1 %; Hemoglobin 9.6 g/dL (12.9-16.9); Immature Granulocytes % 0.1 % (0-4); Lymphocytes # 17.8 K/mcL (0.6-4.6); Lymphocytes % 80.7 %; Mean Corpuscular Hemoglobin 30.3 pg (28.0-33.3); Mean Corpuscular Volume 97.8 fL (83.0-100.0); Mean Platelet Volume 12.7 fL (9.4-12.4); Monocytes # 0.1 K/mcL (0.0-1.3); Monocytes % 0.4 %; Neutrophils # 4.1 K/mcL (1.6-8.9); Platelet Count 83 K/mcL (140-400); Red Blood Count 3.17 M/mcL (4.19-5.50); Red Cell Distribution Width 18.2 % (11.5-14.5); Segmented Neutrophils % 18.7 %
[2020-04-16 10:45] LABS: Bilirubin,Urine Negative (Negative); Blood,Urine Small (Negative); Clarity,Urine Clear (Clear); Color,Urine Yellow (Yellow); Glucose,Urine (UA) Normal (Normal); Ketones,Urine Trace mg/dL (Negative); Leukocyte Esterase,Urine Negative (Negative); Nitrite,Urine Positive (Negative); Protein,Urine Trace mg/dL (Neg-Trace); Specific Gravity,Urine 1.025 (1.010-1.025); Urobilinogen,Urine Normal (Normal)
[2020-04-16 10:49] LABS: INR 1.4; Prothrombin Time 16.5 Seconds (9.4-12.1)
[2020-04-16] MEDS ORDERED: Piperacillin/Tazobactam 3.375 GM in 0.9 % Sodium Chloride Mini Bag 100 ML IVPB ONE (10:50)
[2020-04-16 10:52] LABS: Bacteria,Urine Moderate per hpf (None-Few); Squamous Epithelial Cell,Urine Few per hpf (None-Few); WBC,Urine 0-3 per hpf (0-3)
[2020-04-16 11:08] LABS: Anisocytosis 1+ (Not Present); Platelet Estimate Slight Decrease (Normal); Reactive Lymphocytes Present (Not Present)
[2020-04-16 11:10] LABS: Albumin 3.5 g/dL (3.5-5.7); Albumin/Globulin Ratio 1.1 (1.1-2.2); Bilirubin,Total 1.9 mg/dL (0.3-1.0); Calcium 8.7 mg/dL (8.6-10.3); Globulin 3.1 g/dL (2.4-3.5); Potassium 5.1 mEq/L (3.5-5.1); Total Protein 6.6 g/dL (6.4-8.9); Troponin I 0.11 ng/mL (< 0.04)
[2020-04-16] MEDS ORDERED: Ondansetron 4 MG/2 ML VIAL IVP PRN (14:29)
[2020-04-16] MEDS ORDERED: Acetaminophen 325 MG TABLET PO PRN (14:29)
[2020-04-16] MEDS ORDERED: Naloxone 0.4 MG/ML INJ IVP PRN (14:29)
[2020-04-16] MEDS ORDERED: Piperacillin/Tazobactam 3.375 GM in 0.9 % Sodium Chloride Mini Bag 100 ML IVPB SCH (15:00)
[2020-04-16] MEDS ORDERED: Acetaminophen 650 MG RECTAL SUPP RC PRN (15:32)
[2020-04-16] MEDS: 0.9 % Sodium Chloride 1,000 ML IVC SCH (15:34)
[2020-04-16] MEDS: Aspirin 81 MG TAB.CHEW PO SCH (15:34)
[2020-04-16] MEDS: Piperacillin/Tazobactam 3.375 GM in 0.9 % Sodium Chloride Mini Bag 100 ML IVPB SCH (17:33)
[2020-04-16] MEDS ORDERED: *HR* Warfarin 3 MG TABLET PO ONE (18:00)
[2020-04-16] MEDS ORDERED: Warfarin perPT PO PRN (18:00)
[2020-04-16 18:09] LABS: Adenovirus Not Detected (Not Detect); Bordetella Pertussis Not Detected (Not Detect); Chlamydophila pneumoniae Not Detected (Not Detect); Coronavirus 229E Not Detected (Not Detect); Coronavirus HKU1 Not Detected (Not Detect); Coronavirus NL63 Not Detected (Not Detect); Coronavirus OC43 Not Detected (Not Detect); Human Metapneumovirus Not Detected (Not Detect); Human Rhinovirus/Enterovirus Not Detected (Not Detect); Influenza A Subtype 2009 H1 Not Detected (Not Detect); Influenza B Not Detected (Not Detect); Mycoplasma pneumoniae Not Detected (Not Detect); Parainfluenza Virus 1 Not Detected (Not Detect); Parainfluenza Virus 2 Not Detected (Not Detect); Parainfluenza Virus 3 Not Detected (Not Detect); Parainfluenza Virus 4 Not Detected (Not Detect); Respiratory Syncytial Virus Not Detected (Not Detect); SARS-CoV-2 Not Detected (Not Detect)
[2020-04-17] MEDS: Piperacillin/Tazobactam 3.375 GM in 0.9 % Sodium Chloride Mini Bag 100 ML IVPB SCH ×2 (01:38→22:32)
[2020-04-17] MEDS: 0.9 % Sodium Chloride 1,000 ML IVC SCH (05:04)
[2020-04-17] MEDS: *HR* Enoxaparin 60 MG/0.6 ML SYRINGE SQ SCH (05:05)
[2020-04-17] MEDS ORDERED: *HR* Enoxaparin 40 MG/0.4 ML SYRINGE SQ SCH (06:00)
[2020-04-17 07:19] LABS: Basophils % 0.2 %; Eosinophils % 0.1 %; Hematocrit 25.7 % (37.5-50.1); Hemoglobin 7.8 g/dL (12.9-16.9); Immature Granulocytes % 0.3 % (0-4); Lymphocytes % 77.1 %; Mean Corpuscular HGB Conc 30.4 g/dL (31.6-35.5); Mean Corpuscular Hemoglobin 29.9 pg (28.0-33.3); Mean Corpuscular Volume 98.5 fL (83.0-100.0); Monocytes # 0.1 K/mcL (0.0-1.3); Monocytes % 0.7 %; Red Blood Count 2.61 M/mcL (4.19-5.50); Red Cell Distribution Width 18.3 % (11.5-14.5); Segmented Neutrophils % 21.6 %; White Blood Count 18.5 K/mcL (4.3-11.1)
[2020-04-17 07:20] LABS: INR 1.9; Prothrombin Time 21.1 Seconds (9.4-12.1)
[2020-04-17 07:30] LABS: Lymphocytes # 14.3 K/mcL (0.6-4.6); Platelet Count 60 K/mcL (140-400)
[2020-04-17 07:32] LABS: Albumin 2.6 g/dL (3.5-5.7); Albumin/Globulin Ratio 1.1 (1.1-2.2); Bilirubin,Total 1.1 mg/dL (0.3-1.0); Calcium 7.5 mg/dL (8.6-10.3); Globulin 2.3 g/dL (2.4-3.5); Potassium 4.2 mEq/L (3.5-5.1); Total Protein 4.9 g/dL (6.4-8.9)
[2020-04-17 08:49] LABS: Anisocytosis 2+ (Not Present); Platelet Estimate Marked Decrease (Normal); Polychromasia 1+ (Not Present)
[2020-04-17] MEDS ORDERED: Furosemide 20 MG TABLET PO SCH (09:00)
[2020-04-17] MEDS: Aspirin 81 MG TAB.CHEW PO SCH (10:02)
[2020-04-17] MEDS: allopurinoL 100 MG TABLET PO SCH (10:03)
[2020-04-17] MEDS: Isosorbide MONOnitrate (24 HR) 60 MG TAB.ER.24H PO SCH (10:03)
[2020-04-17] MEDS: amLODIPine 5 MG TABLET PO SCH (10:03)
[2020-04-17] MEDS ORDERED: 0.9 % Sodium Chloride 250 ML IVC SCH (13:45)
[2020-04-17] MEDS ORDERED: Piperacillin/Tazobactam 3.375 GM in 0.9 % Sodium Chloride Mini Bag 100 ML IVPB SCH (18:00)
[2020-04-17] MEDS ORDERED: *HR* Warfarin 1 MG TABLET PO ONE (18:00)
[2020-04-17 22:13] LABS: Hematocrit 30.5 % (37.5-50.1); Hemoglobin 9.7 g/dL (12.9-16.9)
[2020-04-18] MEDS: 0.9 % Sodium Chloride 1,000 ML IVC SCH ×4 (02:36→18:06)
[2020-04-18] MEDS: *HR* Enoxaparin 60 MG/0.6 ML SYRINGE SQ SCH (05:31)
[2020-04-18] MEDS: Piperacillin/Tazobactam 3.375 GM in 0.9 % Sodium Chloride Mini Bag 100 ML IVPB SCH ×2 (08:02→19:45)
[2020-04-18] MEDS: amLODIPine 5 MG TABLET PO SCH (08:03)
[2020-04-18] MEDS: Aspirin 81 MG TAB.CHEW PO SCH (08:03)
[2020-04-18] MEDS: Isosorbide MONOnitrate (24 HR) 60 MG TAB.ER.24H PO SCH (08:03)
[2020-04-18] MEDS: allopurinoL 100 MG TABLET PO SCH (08:03)
[2020-04-18 09:11] LABS: Basophils # 0.1 K/mcL (0.0-0.2); Basophils % 0.2 %; Eosinophils % 0.4 %; Hematocrit 31.2 % (37.5-50.1); Hemoglobin 9.7 g/dL (12.9-16.9); Immature Granulocytes % 0.2 % (0-4); Lymphocytes # 31.2 K/mcL (0.6-4.6); Lymphocytes % 84.7 %; Mean Corpuscular HGB Conc 31.1 g/dL (31.6-35.5); Mean Corpuscular Hemoglobin 30.2 pg (28.0-33.3); Mean Corpuscular Volume 97.2 fL (83.0-100.0); Mean Platelet Volume 11.7 fL (9.4-12.4); Monocytes # 0.2 K/mcL (0.0-1.3); Monocytes % 0.4 %; Neutrophils # 5.2 K/mcL (1.6-8.9); Red Blood Count 3.21 M/mcL (4.19-5.50); Red Cell Distribution Width 18.1 % (11.5-14.5); Segmented Neutrophils % 14.1 %
[2020-04-18 09:13] LABS: INR 2.3; Prothrombin Time 26.1 Seconds (9.4-12.1)
[2020-04-18 09:26] LABS: Albumin 2.8 g/dL (3.5-5.7); Albumin/Globulin Ratio 1.1 (1.1-2.2); Bilirubin,Total 1.2 mg/dL (0.3-1.0); Calcium 7.7 mg/dL (8.6-10.3); Globulin 2.5 g/dL (2.4-3.5); Potassium 4.4 mEq/L (3.5-5.1); Total Protein 5.3 g/dL (6.4-8.9)
[2020-04-18 10:07] LABS: Eosinophils # 0.2 K/mcL (0.0-0.6); Platelet Count 65 K/mcL (140-400); White Blood Count 36.8 K/mcL (4.3-11.1)
[2020-04-18 10:16] LABS: Anisocytosis 1+ (Not Present); Platelet Estimate Marked Decrease (Normal); Polychromasia 1+ (Not Present)
[2020-04-18] MEDS ORDERED: *HR* Warfarin 1 MG TABLET PO ONE (18:00)
[2020-04-19 06:27] LABS: Basophils % 0.2 %; Eosinophils # 0.1 K/mcL (0.0-0.6); Eosinophils % 0.5 %; Hemoglobin 8.9 g/dL (12.9-16.9); Immature Granulocytes % 0.2 % (0-4); Lymphocytes # 21.2 K/mcL (0.6-4.6); Lymphocytes % 81.7 %; Mean Corpuscular HGB Conc 30.7 g/dL (31.6-35.5); Mean Corpuscular Hemoglobin 29.5 pg (28.0-33.3); Mean Platelet Volume 13.8 fL (9.4-12.4); Monocytes # 0.2 K/mcL (0.0-1.3); Monocytes % 0.6 %; Neutrophils # 4.4 K/mcL (1.6-8.9); Red Blood Count 3.02 M/mcL (4.19-5.50); Red Cell Distribution Width 17.7 % (11.5-14.5); Segmented Neutrophils % 16.8 %
[2020-04-19 06:30] LABS: Basophils # 0.1 K/mcL (0.0-0.2); Platelet Count 70 K/mcL (140-400)
[2020-04-19 06:38] LABS: INR 2.3; Prothrombin Time 26.2 Seconds (9.4-12.1)
[2020-04-19 06:42] LABS: Calcium 7.4 mg/dL (8.6-10.3); Potassium 4.2 mEq/L (3.5-5.1)
[2020-04-19] MEDS: amLODIPine 5 MG TABLET PO SCH (07:58)
[2020-04-19] MEDS: Isosorbide MONOnitrate (24 HR) 60 MG TAB.ER.24H PO SCH (07:59)
[2020-04-19] MEDS: allopurinoL 100 MG TABLET PO SCH (07:59)
[2020-04-19] MEDS: Aspirin 81 MG TAB.CHEW PO SCH (07:59)
[2020-04-19] MEDS: Piperacillin/Tazobactam 3.375 GM in 0.9 % Sodium Chloride Mini Bag 100 ML IVPB SCH ×2 (08:00→19:27)
[2020-04-19] MEDS ORDERED: Furosemide 20 MG/2 ML VIAL IVP ONE (14:49)
[2020-04-19] MEDS ORDERED: *HR* Warfarin 1 MG TABLET PO ONE (18:00)
[2020-04-20 07:58] LABS: Prothrombin Time 22.3 Seconds (9.4-12.1)
[2020-04-20 07:59] LABS: Basophils % 0.1 %; Eosinophils # 0.2 K/mcL (0.0-0.6); Eosinophils % 0.8 %; Hematocrit 27.4 % (37.5-50.1); Hemoglobin 8.5 g/dL (12.9-16.9); Immature Granulocytes % 0.2 % (0-4); Lymphocytes # 17.4 K/mcL (0.6-4.6); Mean Corpuscular Hemoglobin 29.5 pg (28.0-33.3); Mean Corpuscular Volume 95.1 fL (83.0-100.0); Mean Platelet Volume 13.3 fL (9.4-12.4); Monocytes # 0.1 K/mcL (0.0-1.3); Monocytes % 0.6 %; Red Blood Count 2.88 M/mcL (4.19-5.50); Red Cell Distribution Width 17.7 % (11.5-14.5); Segmented Neutrophils % 16.3 %; White Blood Count 21.2 K/mcL (4.3-11.1)
[2020-04-20 08:11] LABS: Calcium 7.6 mg/dL (8.6-10.3); Potassium 4.1 mEq/L (3.5-5.1)
[2020-04-20 08:30] LABS: Neutrophils # 3.5 K/mcL (1.6-8.9); Platelet Count 66 K/mcL (140-400)
[2020-04-20 08:38] LABS: Platelet Estimate Marked Decrease (Normal)
[2020-04-20 09:34] VITALS: BP 130/69
[2020-04-20] MEDS: allopurinoL 100 MG TABLET PO SCH (09:51)
[2020-04-20] MEDS: amLODIPine 5 MG TABLET PO SCH (09:52)
[2020-04-20] MEDS: Isosorbide MONOnitrate (24 HR) 60 MG TAB.ER.24H PO SCH (09:54)
[2020-04-20] MEDS: Aspirin 81 MG TAB.CHEW PO SCH (09:54)
[2020-04-20] MEDS: Piperacillin/Tazobactam 3.375 GM in 0.9 % Sodium Chloride Mini Bag 100 ML IVPB SCH (09:55)
[2020-04-20] MEDS ORDERED: *HR* Warfarin 2.5 MG TABLET PO ONE (18:00)
== END 2020-04-20 16:50 | disposition other institution (70) | DRG 871 ==
LOC: INPPIK 09:57 → EMEROOPIK 09:57 → INPPIK 15:18
PROVIDERS: ADMIT Family Medicine; ATTEND Family Medicine

== ENCOUNTER 2020-04-25 17:34 | Inpatient (IN) ==
[2020-04-25] MEDS ORDERED: Haloperidol Oral Conc 10 MG/5 ML UDC PO PRN (17:56)
[2020-04-25] MEDS ORDERED: Ondansetron ODT 4 MG TAB.RAPDIS SL PRN (17:56)
[2020-04-25] MEDS: Morphine Sulfate Oral CONC 10 MG/0.5 ML ORAL.SYG PO PRN (21:43)
[2020-04-26] MEDS: Morphine Sulfate Oral CONC 10 MG/0.5 ML ORAL.SYG PO PRN ×4 (01:03→23:13)
[2020-04-26] MEDS: *HR* LORazepam Oral Conc 2 MG/ML PO PRN ×4 (03:14→22:45)
[2020-04-27 00:04] VITALS: BP 123/85
[2020-04-27] MEDS: Morphine Sulfate Oral CONC 10 MG/0.5 ML ORAL.SYG PO PRN (01:03)
[2020-04-27] MEDS: *HR* LORazepam Oral Conc 2 MG/ML PO PRN (01:56)
== END 2020-04-27 05:45 | disposition expired | DRG 871 ==
LOC: INPPIK 18:07
PROVIDERS: ADMIT Family Medicine; ATTEND Family Medicine